=== PATIENT | male | born 1960 | race Caucasian/White ===

== ENCOUNTER 2018-02-07 11:56 | Inpatient (IN) | payer OTHER, SELFPAY ==
[2018-02-07 13:02] LABS: Hemoglobin 14.3 g/dL (14.0-18.0); Mean Corpuscular HGB CONC 34.9 g/dL (32.0-36.0); Mean Corpuscular Hemoglobin 33.5 pg (27.0-31.0); Mean Corpuscular Volume 96.2 fL (78.0-98.0); Mean Platelet Volume 8.3 fL (7.4-10.4); Platelet Count 226 thou/uL (130-400); RBC Distribution Width 14.8 % (11.5-14.5); Red Blood Cell (RBC) Count 4.28 mill/uL (4.70-6.10); White Blood Cell (WBC) Count 8.6 thou/uL (4.8-10.8)
[2018-02-07 13:07] LABS: Anion Gap 31 mmol/L (10-20); Calc. Creatinine Clearance 0 mL/min (70-130); Calcium 7.4 mg/dL (7.8-10.44); Carbon Dioxide 27 mmol/L (22-29); Chloride 91 mmol/L (98-107); Estimated GFR-MDRD 7; Glucose 171 mg/dL (70-105); Sodium 147 mmol/L (136-145)
[2018-02-07 13:09] LABS: ALT (SGPT) 201 U/L (8-55); AST (SGOT) 393 U/L (5-34); Albumin 2.8 g/dL (3.5-5.0); Alkaline Phosphatase 179 U/L (40-150); Bilirubin, Direct 1.1 mg/dL (0.1-0.3); Bilirubin, Total 1.8 mg/dL (0.2-1.2); Protein, Total 5.6 g/dL (6.0-8.3)
[2018-02-07 13:12] LABS: Troponin I 0.126 ng/mL (< 0.028)
[2018-02-07 13:15] LABS: Potassium 2.2 mmol/L (3.5-5.1)
[2018-02-07 13:18] LABS: Band 4 % (5-11); Lymphocytes 6 % (21-51); MDiff Complete? YES; Monocytes 20 % (0-10); Neutrophil 68 % (42-75); Nucleated RBC 1 % (0); PLT Morphology Comment Appears Adequate; RBC Morphology Normal
[2018-02-07 13:19] LABS: BUN (Urea Nitrogen) 126 mg/dL (8.4-25.7)
[2018-02-07] MEDS ORDERED: Potassium Chloride 20 MEQ TAB ONE (13:33)
[2018-02-07 13:34] LABS: CK (CPK) 8032 U/L (30-200)
[2018-02-07] MEDS ORDERED: Potassium Chloride 40 MEQ in Sodium Chloride 0.9% 250 ML 250 ML IVPB SCH (13:45)
[2018-02-07 15:39] LABS: Acetaminophen Less than 6.0 mcg/mL (10.0-30.0); Alcohol Less than 10 mg/dL (Less than 10); Salicylate Less than 8.0 mg/dL (15.0-30.0)
[2018-02-07 15:58] LABS: Lactic Acid 1.3 mmol/L (0.5-2.2)
[2018-02-07 16:12] LABS: Bilirubin Moderate (Negative); Blood, Urine Large (Negative); Clarity CLOUDY (Clear); Glucose, Urine (Dipstick) Negative (Negative); Leukocyte Negative (Negative); Nitrite Negative (Negative); Protein, Urine (Dipstick) 30 mg/dL (Neg-Trace); Specific Gravity, Urine 1.013 (1.002-1.036); pH, Urine 5.5 (5.0-9.0)
[2018-02-07 16:15] LABS: Bacteria/HPF None Seen HPF (None Seen); Squamous Epithelial 0-3 HPF (0-3)
[2018-02-07 16:18] LABS: Pathc Cast-AUWi Flag 9.74 (0-2.49); Yeast-AUWi Flag 159.3 (0-25.0)
[2018-02-07] MEDS ORDERED: Acetaminophen 500 MG TAB ONE (16:21)
[2018-02-07 16:22] LABS: Amphetamine Not Detected (NotDetected); Barbiturates Screen Not Detected (NotDetected); Benzodiazepine Screen Not Detected (NotDetected); Cocaine Metabolite Screen Not Detected (NotDetected); Medtox Reader # READER 4; Methadone Not Detected (NotDetected); Methamphetamine Not Detected (NotDetected); Opiate Screen Not Detected (NotDetected); Oxycodone Screen Not Detected (NotDetected); Phencyclidine (PCP) Not Detected (NotDetected); THC/Cannabinoid Screen Not Detected (NotDetected); Tricyclic Screen Not Detected (NotDetected)
[2018-02-07 16:23] LABS: Medtox Control Line Valid? VALID (VALID)
[2018-02-07 16:28] LABS: Crystals/HPF 1+ AMORPH URATES HPF (Negative)
[2018-02-07 16:29] LABS: Yeast-All Forms None Seen HPF (None Seen)
[2018-02-07] MEDS ORDERED: Magnesium Sulfate 2 GM in Sodium Chloride 0.9% 100 ML IVPB SCH (17:30)
--- NOTE | 2018-02-07 18:24 | HP ---
DATE OF ADMISSION: 02/07/2018 PRIMARY CARE PHYSICIAN: Noam Cross. TIME OF SERVICE: 1715 hours. CHIEF COMPLAINT: Alcohol intoxication. HISTORY OF PRESENT ILLNESS: Mr. Esquivel is a 57-year-old male who was sent to the emergency departm ent after his sister found him down on the floor after several hours. He had been drinking heavily a gain after getting down and she was concerned that he was intoxicated. EMS was activated when she found him. He has had some vomiting about 5 times over the last 2 days, h e had some loose stools. He was subsequently transported to the emergency department. On arrival here, he was found to be very disheveled looking. He admitted to being down for several h ours, but said he had not had a drink since yesterday. Denies any chest pain or shortness of breath. No nausea and vomiting present. No diarrhea or constipation. No cough, sputum production. No hem optysis or GI bleeding. Workup in the ER showed him to be in acute renal failure with a creatinine of 8.48 and a BUN of 126, potassium was low at 2.2. Magnesium was low at 1.5. Liver functions were elevated with AST of 393 a nd ALT of 201 and a fairly normal white blood cell count. Of concern though he did have a lymphocyte count of 6%, giving him an ANC around 500. Alcohol level was reportedly negative. Lactic acid was normal. CK was elevated in the 8000 range. We were subsequently called for admission for rhabdo, acute renal failure, and alcoholic hepatitis. The patient has no other further history to add. PAST MEDICAL HISTORY: 1. Hypertension. 2. Alcohol abuse. The patient stated that decreased level of alcohol intake over the last 2 years, but it started bingeing recently. PAST SURGICAL HISTORY: Appendectomy. MEDICATIONS: 1. Lisinopril 20 mg daily. He missed 2 doses last week and he did not take his dose today. 2. Atorvastatin 40 mg p.o. at bedtime. ALLERGIES: PENICILLIN. He does not know what his reaction, it was many, many years ago. FAMILY HISTORY: Negative for clotting or bleeding disorder, no immune dysfunction. SOCIAL HISTORY: Significant for alcohol, he drinks more than 10 drinks a day. He says 6-8 beers jazmín ly over the last several days, but none today. Denies any IV drug use and no tobacco. REVIEW OF SYSTEMS: All systems were reviewed and negative except stated as above. PHYSICAL EXAMINATION: VITAL SIGNS: Temperature 97.7, pulse 86, blood pressure 144/99, respiratory rate 20, and saturating 100% on room air. GENERAL: He is awake. He is alert. He is oriented x3. He is disheveled looking white male, appear s to be in no acute distress. HEENT: He is normocephalic, he has multiple bruises present over his face. Mucous membranes are mo ist. He has no visible lesions. No thrush. Teeth are in poor repair. NECK: Supple. There is no lymphadenopathy, JVD, or thyromegaly. He has normal carotid upstroke. I do not appreciate any bruits. LUNGS: Clear to auscultation bilaterally. No wheezes, no rales, no rhonchi. No prolonged expirator y phase. CARDIOVASCULAR: Normocardic and regular. Normal S1 and S2. I do not appreciate any S3, S4, no murm urs. ABDOMEN: Soft. It is nontender, nondistended. He has no hepatosplenomegaly. He has no rebound, ri gidity or guarding with normoactive bowel sounds present in all 4 quadrants. EXTREMITIES: No cyanosis, no clubbing with trace pedal edema. He has 2+ dorsalis pedis and posterio r tibial pulses. SKIN: Warm, moist, and well perfused. He has multiple excoriations and scabs present over his arms and legs. MUSCULOSKELETAL: Normal to inspection. Large joints appear normal. There is no evidence of inflamm ation or palpable effusions. NEUROLOGIC: Cranial nerves II-XII are grossly intact. He has no tremors. He has normal speech gopi gabrielle. He has 5/5 strength in all 4 extremities. LABORATORY DATA: Sodium 147, potassium 2.2, chloride 91, bicarbonate 27, BUN 126, creatinine 8.48, c alcium 9.4, and mag of 1.5. Alkaline phosphatase is elevated at 179 with AST of 393, ALT of 201, total bilirubin 1.8 with a direc t bilirubin of 1.1, total protein 5.6 and albumin 2.8. CBC showed a white count of 8.6, hemoglobin 1 4.3 with a hematocrit of 41.1, and platelet count is 226,000. He has a 63% granulocytes, 4% bands, 6 % lymphocytes, and 26% monocytes. ASSESSMENT AND PLAN: 1. Acute kidney injury: The patient reported that he did not have any history of kidney issues. He is extremely dehydrated plus has been on IRENE inhibitor. We will hold IRENE inhibitor obviously, we wi ll hydrate him aggressively. We will use banana bag and we will continue that tonight. 2. Rhabdomyolysis. CK of 8000 after being down in the floor. His MB and troponin I are slightly el evated as well. We will continue to hydrate. The bicarbonate was 27. I do not feel there is any to alkalinize his urine at this point. 3. Sbcjpyig-cd-itdiqk dehydration. Lactic acid level was remarkably normal. We will hydrate him ag gressively. 4. Hypokalemia with potassium 2.2, replaced orally and IV in the ER. 5. Hypomagnesemia, 2 grams have been ordered. 6. Elevated troponin. No history of chest pain. We will get serial cardiac biomarkers. 7. Subsequent hypertension. Antihypertensives are on hold. 8. Alcohol abuse. The patient was set up for alcohol withdrawal. He is a now 24 hours post, we carrol l initiate the ASE protocol for symptoms and for management. 9. Hyperlipidemia. The patient has been on atorvastatin. We will hold that at present.
[2018-02-07] MEDS ORDERED: Ondansetron ODT 4 MG TAB PO PRN (20:18)
[2018-02-07] MEDS ORDERED: Diazepam 5 MG TAB PO PRN (20:27)
[2018-02-07] MEDS ORDERED: Thiamine HCl 200 MG/2 ML VIAL IM SCH (20:30)
[2018-02-07] MEDS ORDERED: Diazepam 5 MG TAB PO SCH (20:30)
[2018-02-07] MEDS ORDERED: Lactated Ringer's 1,000 ML IV SCH (21:00)
[2018-02-07] MEDS: Famotidine 20 MG TAB PO SCH (21:02)
[2018-02-07] MEDS: Ondansetron HCl/PF 4 MG/2 ML Vial IVP PRN (21:02)
[2018-02-07 21:19] LABS: Troponin I 0.091 ng/mL (< 0.028)
[2018-02-07] MEDS: WATER IV SCH (21:21)
[2018-02-07] MEDS: SODIUM BICARBONATE IV SCH (21:21)
[2018-02-07] MEDS: DEXTROSE 5% IV SCH (21:21)
[2018-02-07] MEDS: POTASSIUM CHLORIDE IV SCH (21:21)
--- NOTE | 2018-02-08 03:09 | CON ---
DATE OF CONSULTATION: 02/07/2018 RENAL MEDICINE HISTORY OF PRESENT ILLNESS: Mr. Esquivel is a 57-year-old white male with known history of hypertens ion and admitted for syncopal episode. The patient has heavy alcohol intake. He was found by his si ster to be unresponsive. At the ER, he was found to be volume depleted and aggressive volume repleti on was done. During the initial workup, his CPK was noted to be significantly elevated to around 8,0 00 as well as an elevated BUN of 126 and creatinine of 8.48. He was also noted to be significantly h ypokalemic. On close questioning, this patient has history of heavy alcohol intake. He is also curr ently . REVIEW OF SYSTEMS: Positive for loss of consciousness. No chest pain, no shortness of breath, no na usea, no vomiting. Decreased appetite, decreased energy level. No headache, no diplopia, no hematoc hezia, no melena, no hematemesis, no gross hematuria. No abdominal pain. Appetite and energy level is fair. MEDICATIONS: Lisinopril 20 mg tab daily, pravastatin dose unknown, currently not taking, Ativan 0.5 mg tab p.r.n. PAST MEDICAL HISTORY: Longstanding history of hypertension. PAST SURGICAL HISTORY: 1. Status post appendectomy. 2. Status post right shoulder surgery? SOCIAL HISTORY: The patient lives in [place]. He is . Denies any children. Status post blo od transfusion. Denies any IV drug abuse. Currently no smoking. History of heavy alcohol intake. Active lifestyle. Education college graduate. ALLERGIES: PENICILLIN. TRAUMA: Status post right ankle fracture, status post right shoulder joint fracture. IMMUNIZATIONS: Not up to date. HOSPITALIZATIONS: Please see past medical history. FAMILY HISTORY: No family history of ESRD. PHYSICAL EXAMINATION: VITAL SIGNS: Blood pressure was noted to be at 134/93 with heart rate of 107, respiratory rate 20, t emperature 97.7. GENERAL: Noted to be awake, supine, comfortable, not in overt distress. SKIN: Decreased turgor. HEENT: He has pinkish conjunctivae, anicteric sclerae. NECK: No neck mass, no carotid bruits, no JVD. CHEST: No deformities. LUNGS: Clear breath sounds, no wheezing, no crackles. HEART: Normal sinus rhythm. No murmur, no gallops, no rubs. ABDOMEN: Globular, soft, nontender. No masses. EXTREMITIES: No edema. LABORATORY DATA: Laboratories of 02/07/2018; white count 8.6, hemoglobin 14.3, sodium 147, potassium 2.2, chloride 91, carbon dioxide 27, BUN 126, creatinine 8.48, calcium 7.4, AST 393, ALT 201, alkali ne phosphatase 179. [place] 8032, troponin I 0.126, albumin 2.8. Plasma alcohol less than 10. Urinalysis showed 0-3 coarse and finely granular casts, specific gravity 1.013, urine protein is 30. ASSESSMENT AND PLAN: Acute kidney injury, consider hemodynamically mediated renal dysfunction second jenny to volume depletion. The patient was given aggressive volume repletion at the ER. History of de creased p.o. intake. He was also taking lisinopril prior to admission. My concern is that this bert ent may have already developed overt acute tubular necrosis. It may be related to my group myoglobin uric ATN as suggested by an elevated CPK of 8,000. The other possibility this all could be just from volume depletion. For the moment, continue supportive care. There is no indication for any dialyti c intervention. My plan is to continue isotonic bicarbonate with this patient - D5 water 850 mL plus 3 ampule of sodi um bicarbonate plus 40 mEq of KCl to run at 125 mL per hour. We will reevaluate this patient's renal function tomorrow. Consider ordering a renal ultrasound in a.m. to determine kidney size and chroni city of this renal dysfunction. Thank you for the consult. We will continue to follow.
[2018-02-08] MEDS ORDERED: Diazepam 5 MG TAB PO PRN (04:00)
[2018-02-08 05:26] LABS: ALT (SGPT) 160 U/L (8-55); AST (SGOT) 282 U/L (5-34); Albumin 2.3 g/dL (3.5-5.0); Alkaline Phosphatase 153 U/L (40-150); Anion Gap 21 mmol/L (10-20); BUN (Urea Nitrogen) 119 mg/dL (8.4-25.7); Bilirubin, Total 1.4 mg/dL (0.2-1.2); Calc. Creatinine Clearance 20 mL/min (70-130); Calcium 6.8 mg/dL (7.8-10.44); Carbon Dioxide 24 mmol/L (22-29); Chloride 100 mmol/L (98-107); Estimated GFR-MDRD 13; Globulin 2.6 g/dL (2.4-3.5); Glucose 134 mg/dL (70-105); Magnesium 2.2 mg/dL (1.6-2.6); Protein, Total 4.9 g/dL (6.0-8.3); Sodium 142 mmol/L (136-145)
[2018-02-08 05:28] LABS: Troponin I 0.046 ng/mL (< 0.028)
[2018-02-08 05:29] LABS: CKMB 10.4 ng/mL (0-6.6); Critical Call CKMBM RESULT DECREASING; Potassium 2.8 mmol/L (3.5-5.1)
[2018-02-08 05:39] LABS: CK (CPK) 6415 U/L (30-200)
[2018-02-08] MEDS: DEXTROSE 5% IV SCH ×3 (05:44→23:44)
[2018-02-08] MEDS: POTASSIUM CHLORIDE IV SCH ×3 (05:44→23:44)
[2018-02-08] MEDS: WATER IV SCH ×3 (05:44→23:44)
[2018-02-08] MEDS: SODIUM BICARBONATE IV SCH ×3 (05:44→23:44)
[2018-02-08 05:55] LABS: Band 5 % (5-11); Hemoglobin 11.5 g/dL (14.0-18.0); Lymphocytes 8 % (21-51); MDiff Complete? YES; Mean Corpuscular HGB CONC 34.5 g/dL (32.0-36.0); Mean Corpuscular Hemoglobin 33.1 pg (27.0-31.0); Mean Corpuscular Volume 95.9 fL (78.0-98.0); Mean Platelet Volume 8.5 fL (7.4-10.4); Monocytes 19 % (0-10); Neutrophil 68 % (42-75); PLT Morphology Comment Appears Adequate; Platelet Count 187 thou/uL (130-400); RBC Distribution Width 14.8 % (11.5-14.5); Red Blood Cell (RBC) Count 3.46 mill/uL (4.70-6.10); White Blood Cell (WBC) Count 6.3 thou/uL (4.8-10.8)
[2018-02-08] MEDS: Magnesium Oxide 400 MG TAB PO SCH (09:43)
[2018-02-08] MEDS: Folic Acid 1 MG TAB PO SCH (09:43)
[2018-02-08] MEDS: Multivitamin W/ Minerals 1 TAB PO SCH (09:43)
--- NOTE | 2018-02-08 09:47 | PRG ---
DATE OF SERVICE: 02/08/2018 SUBJECTIVE: Mr. Esquivel is a 57-year-old white male who was admitted for a syncopal episode and was noted to be in acute kidney injury with elevated CPK of 8000. Review of the ____ suggested superimp osed acute tubular necrosis. My suspicion initially is that he may have a myoglobinuric ATN. This p atient has also heavy alcohol use. He was empirically given volume repletion overnight. His creatin ine is slightly improved and he is diuresing well. No new complaints today, no chest pain or shortne ss of breath. PHYSICAL EXAMINATION: VITAL SIGNS: Blood pressure 121/82, heart rate 88, respiratory rate 22, temperature 98.6, pulse ox 1 00%. GENERAL: Noted to be awake, alert, comfortable, not in distress SKIN: Adequate turgor. HEENT: He has pinkish conjunctivae, anicteric sclerae. NECK: No neck mass, no carotid bruits, no JVD. CHEST: No deformities. LUNGS: Clear breath sounds. No wheezing, no crackles. HEART: Normal sinus rhythm. No murmur, no gallops, no rubs. ABDOMEN: Globular, soft, nontender, no masses. EXTREMITIES: No edema, no deformities. MEDICATIONS: 02/08/2018 - Reviewed. LABORATORY DATA: 02/08/2018 - White count 6.2, hemoglobin 11.5, sodium 142, potassium 2.8, chloride 100, carbon dioxide 24, BUN is 119, creatinine is 4.58. AST is 282, ALT 160, CK 10.4. Troponin I 0. 046, albumin 2.3. Further review of his BUN on 02/07/2018 showed a BUN of 126 and a creatinine of 8. 48. ASSESSMENT AND PLAN: 1. Acute kidney injury - consider the possibility of myoglobinuric acute tubular necrosis. He seems to be responding with volume repletion. The plan is to continue IV hydration. There is no indicati on for any dialytic intervention. The patient is making adequate urine output. 2. Mild hypokalemia, p.r.n. potassium replacement. Currently, the patient received KCl 40 mEq The patient received potassium replacement yesterday. Our plan is to continue the IV hydration with the potassium. We will give him a 1 time dose of KCl - 40 mEq. Recheck base met and CBC in a.m.
[2018-02-08] MEDS ORDERED: Potassium Chloride 20 MEQ TAB PO SCH (10:00)
--- NOTE | 2018-02-08 10:04 | ULT ---
BILATERAL RENAL ULTRASOUND COMPLETE: Date: 02/08/18 HISTORY: 57-year-old male with history of renal failure. FINDINGS: The right kidney measures 11.2 x 6.2 x 5.6 cm. The left kidney measures 11.0 x 6.5 x 5.7 cm. No renal hydronephrosis or perinephric process. There is a Meier catheter in place within the bladder with a somewhat thick wall, although it is nearly empty. IMPRESSION: No renal hydronephrosis or perinephric process. Meier catheter within the bladder, which is nearly em pty with a somewhat thickened wall, probably related to underdistention. POS: JOSE DE JESUS
--- NOTE | 2018-02-08 11:16 | PDOC.PN ---
- Subjective Encounter Start Date: 02/08/18 Encounter Start Time: 11:14 Subjective: nsg notes rev, zhou ovn, pt overall feels better -: states his father and he resumed drinking after being sober then inc -: his etoh intake when his mother wasn't feeling well - Objective Resuscitation Status: Resuscitation Status FULL:Full Resuscitation Vital Signs & Weight: Vital Signs (12 hours) Temp Pulse Resp BP BP Pulse Ox 02/08/18 08:00 98.6 F 88 22 H 121/82 100 02/08/18 04:00 98.3 F 82 15 126/82 99 02/08/18 00:00 97.3 F L 84 17 101/70 101/70 100 Weight Weight 173 lb 4 oz I&O: 02/07/18 02/08/18 02/09/18 06:59 06:59 06:59 Intake Total 2310 Output Total 1475 Balance 835 Result Diagrams: 02/08/18 04:26 02/08/18 04:26 Phys Exam - Physical Examination Constitutional: NAD seated in hospital bed HEENT: moist MMs, sclera anicteric Respiratory: no wheezing, no rales, no rhonchi, clear to auscultation bilateral Cardiovascular: RRR, no significant murmur, no rub Gastrointestinal: soft, non-tender, no distention, positive bowel sounds Musculoskeletal: no edema, pulses present Neurological: moves all 4 limbs Psychiatric: A&O x 3 Deviation from normal: slightly anxious Dx/Plan - Plan cont current plan of care * IRA * improved with hydration * apprec nephro c/s * continue to hydrate, check BMP in AM, monitor I/O rhabdomyolysis improved hydration as above etoh use contemplative of cessation - previously was going to AA, would like to resume has had w/d before but w/o sz continue ASE protocol hypokalemia repletion prn maintain on telemetry repeat BMP diet: as marielena activity: as marielena dvt ppx d/w pt and bedside nsg Review of Systems - Medications/Allergies Allergies/Adverse Reactions: Allergies Allergy/AdvReac Type Severity Reaction Status Date / Time Penicillins Allergy Verified 02/08/18 01:46 Medications: Current Medications Diazepam (Valium) 5 mg PO Q4H PRN PRN Reason: FOR ASE 10 OR GREATER Famotidine (Pepcid) 20 mg PO QPM [facility] Last Admin: 02/07/18 21:02 Dose: 20 mg Folic Acid (Folvite) 1 mg PO DAILY [facility] Last Admin: 02/08/18 09:43 Dose: 1 mg Sodium Bicarbonate 150 meq/Potassium Chloride 40 meq/Dextrose/Water 1,020 mls @ 125 mls/hr IV .Q8H10M [facility] Last Admin: 02/08/18 05:44 Dose: 1,020 mls Iron/Minerals/Multivitamins (Theragran M) 1 tab PO DAILY [facility] Last Admin: 02/08/18 09:43 Dose: 1 tab Magnesium Oxide (Magnesium Oxide) 400 mg PO DAILY [facility] Last Admin: 02/08/18 09:43 Dose: 400 mg Miscellaneous (Ase Protocol) 1 each FS ONE [facility] Stop: 02/17/18 20:19 Ondansetron HCl (Zofran Odt) 4 mg PO Q6H PRN PRN Reason: Nausea/Vomiting Ondansetron HCl (Zofran) 4 mg IVP Q6H PRN PRN Reason: Nausea/Vomiting Last Admin: 02/07/18 21:02 Dose: 4 mg Potassium Chloride (K-Dur) 40 meq PO 1000 [facility] Stop: 02/08/18 12:00 Sodium Chloride (Flush - Normal Saline) 10 ml IVF Q12HR [facility] Last Admin: 02/08/18 09:43 Dose: 10 ml Sodium Chloride (Flush - Normal Saline) 10 ml IVF PRN PRN PRN Reason: Saline Flush Thiamine HCl (Thiamine) 100 mg PO DAILY [facility] Last Admin: 02/08/18 09:43 Dose: 100 mg
[2018-02-08] MEDS: Acetaminophen 325 MG TAB PO PRN ×2 (12:42→17:26)
[2018-02-08] MEDS: Famotidine 20 MG TAB PO SCH (20:40)
[2018-02-09] MEDS: DEXTROSE 5% IV SCH ×2 (01:10→06:24)
[2018-02-09] MEDS: WATER IV SCH ×2 (01:10→06:24)
[2018-02-09] MEDS: POTASSIUM CHLORIDE IV SCH ×2 (01:10→06:24)
[2018-02-09] MEDS: SODIUM BICARBONATE IV SCH ×2 (01:10→06:24)
--- NOTE | 2018-02-09 01:42 | CON ---
DATE OF SERVICE: 02/08/2018 SUBJECTIVE: Mr. Esquivel is a 57-year-old male with a history of heavy alcohol use. He apparently has been binge drinking. He says he only drank 2 beers a day prior to admission. Apparently, he had syncope and was found to be unresponsive. He does not recall coming to the hospital. He is not a very helpful historian. PAST MEDICAL HISTORY: Remarkable for hypertension, appendectomy and shoulder surgery. SOCIAL HISTORY: Non-smoker, heavy drinker. He does not use drugs. ALLERGIES: He reports an allergy to PENICILLIN. FAMILY HISTORY: Negative for lung disease in early age. REVIEW OF SYSTEMS: Ten point system review completed, otherwise negative. He says he feels fine, although he does not look well. OBJECTIVE: GENERAL: 57-year-old male with a history of heavy alcohol use. VITAL SIGNS: He is afebrile, heart rate 75, respiratory rate 16, oximetry is 94 % on room air. Blood pressure 151/95. HEENT: Pupils are equal. Sclerae anicteric. NECK: Supple. No lymphadenopathy. LUNGS: Clear. HEART: Regular rhythm, no S3, no murmur. ABDOMEN: Soft and nontender. EXTREMITIES: Without clubbing, cyanosis, or edema. LABORATORY DATA: White count 6.3, hemoglobin 11.5, was 14.3 yesterday. Sodium 187. Intake and output is positive 835, it is probably does not take into account volume resuscitation in the emergency room: Sodium 142, potassium 2.8, chloride 100, bicarbonate 24, BUN 119, creatinine 4.58, creatinine was 8.48 yesterday. CPK was 8032. Liver enzymes were elevated. Bilirubin is 1.8. IMPRESSION: 1. Intravascular volume depletion, severe. 2. Encephalopathy on presentation, most likely secondary to intravascular volume depletion combined with renal failure plus or minus alcoholism. 3. Hyperosmolar state secondary to vascular volume depletion. 4. Acute on chronic kidney disease appears to be improving. 5. Elevated liver enzymes secondary to alcoholism. 6. Rhabdomyolysis secondary to being down for quite some time in one position. PLAN: Continue hydration. Lab work. He wants to go home. He does not appear well at this time and should continue with volume resuscitation and close observation. He cannot move out of intermediate care unit in my opinion. This is a 50 minute consult with greater than 50% of time spent on unit with coordination of care. MTDD
[2018-02-09 06:34] LABS: BUN (Urea Nitrogen) 61 mg/dL (8.4-25.7); Calc. Creatinine Clearance 64 mL/min (70-130); Calcium 7.5 mg/dL (7.8-10.44); Carbon Dioxide Greater than 37 mmol/L (22-29); Chloride 97 mmol/L (98-107); Estimated GFR-MDRD 51; Glucose 108 mg/dL (70-105); Potassium 2.5 mmol/L (3.5-5.1); Sodium 147 mmol/L (136-145)
[2018-02-09 06:37] LABS: Band 15 % (5-11); Eosinophils 1 % (0-10); Hemoglobin 11.6 g/dL (14.0-18.0); Lymphocytes 26 % (21-51); MDiff Complete? YES; Mean Corpuscular HGB CONC 34.3 g/dL (32.0-36.0); Mean Corpuscular Hemoglobin 33.3 pg (27.0-31.0); Mean Corpuscular Volume 97.2 fL (78.0-98.0); Mean Platelet Volume 8.3 fL (7.4-10.4); Metamyelocyte 1 % (0-0); Monocytes 14 % (0-10); Neutrophil 43 % (42-75); PLT Morphology Comment Appears Adequate; Platelet Count 222 thou/uL (130-400); RBC Distribution Width 14.7 % (11.5-14.5); Red Blood Cell (RBC) Count 3.48 mill/uL (4.70-6.10); White Blood Cell (WBC) Count 5.5 thou/uL (4.8-10.8)
[2018-02-09] MEDS ORDERED: Potassium Chloride 20 MEQ TAB PO SCH (07:00)
[2018-02-09] MEDS: Magnesium Oxide 400 MG TAB PO SCH (08:21)
[2018-02-09] MEDS: Folic Acid 1 MG TAB PO SCH (08:21)
[2018-02-09] MEDS: Multivitamin W/ Minerals 1 TAB PO SCH (08:21)
[2018-02-09] MEDS: traMADol HCl 50 MG TAB PO PRN (09:36)
[2018-02-09] MEDS: Sodium Chloride 0.9% 1,000 ML IV SCH ×2 (09:38→18:26)
--- NOTE | 2018-02-09 09:54 | PRG ---
DATE OF SERVICE: 02/09/2018 SERVICE: Renal Medicine. SUBJECTIVE: Mr. Esquivel is a 57-year-old white male, who was seen for an acute kidney injury. The feeling was that this could have been secondary to a myoglobinuric ATN due to findings of mild rhabdo myolysis as well as pigmented granular casts in the urine. Empiric volume repletion was done also at the same time since the possibility of a prerenal component was considered. This morning, he is fee ling a little better. He denies any complaints of chest pain or shortness of breath. PHYSICAL EXAMINATION: VITAL SIGNS: Blood pressure is 157/92, heart rate 60, respiratory rate 14, temperature 98.4, pulse o x 93%. GENERAL EXAM: Awake, alert, supine, comfortable, not in distress. SKIN: Adequate turgor. HEENT: He has pinkish conjunctivae, anicteric sclerae. NECK: No neck mass, no carotid bruits, no JVD. CHEST: No deformities. LUNGS: Clear breath sounds. HEART: Normal sinus rhythm. No murmur, no gallops, no rubs. ABDOMEN: Globular, soft, nontender, no masses. EXTREMITIES: No edema. Medications of 02/09/2018 were reviewed. LABORATORY DATA: Laboratories of 02/09/2018, sodium 147, potassium 2.5, chloride 97, carbon dioxide greater than 27, BUN 61, creatinine 1.44, calcium is 7.5. White count 5.5 and hemoglobin 11.6. ASSESSMENT AND PLAN: 1. Acute kidney injury - secondary to presumed myoglobinuric acute tubular necrosis. However, renal function is much improved suggesting that he most likely has a prerenal component for the renal dysf unction. Our plan is to continue current management. Due to the increased bicarbonate, we will bhatt ge IV fluid to normal saline and run at 100 mL per hour. 2. Mild hypokalemia, p.r.n. potassium replacement. There is no indication for any dialytic intervention. Continue supportive care with this patient.
[2018-02-09] MEDS: Ondansetron HCl/PF 4 MG/2 ML Vial IVP PRN (11:28)
--- NOTE | 2018-02-09 14:22 | PDOC.PN ---
- Subjective Encounter Start Date: 02/09/18 Encounter Start Time: 07:40 Pt seen for followup re: rhabdomyolysis. Denies chest pain or shortness of breath. - Objective Resuscitation Status: Resuscitation Status FULL:Full Resuscitation MAR Reviewed: Yes Vital Signs & Weight: Vital Signs (12 hours) Temp Pulse Resp BP Pulse Ox 02/09/18 11:31 98.9 F 57 L 16 163/95 H 94 L 02/09/18 08:11 98.4 F 60 14 157/92 H 93 L 02/09/18 04:00 98.2 F 62 16 146/87 H 92 L Weight Admit Weight 172 lb 7 oz Weight 173 lb 4 oz I&O: 02/08/18 02/09/18 02/10/18 06:59 06:59 06:59 Intake Total 2310 3080 Output Total 1475 4600 Balance 835 -1520 Result Diagrams: 02/10/18 08:47 02/10/18 08:47 EKG Reviewed by me: Yes (Tele: NSR) Phys Exam - Physical Examination Constitutional: NAD HEENT: moist MMs, oral pharynx no lesions, 2+ tonsils scleral icterus Neck: no nodes, no JVD, supple, full ROM Respiratory: no wheezing, no rales, no rhonchi, clear to auscultation bilateral Cardiovascular: RRR, no rub S1,S2 Gastrointestinal: soft, non-tender, no distention, positive bowel sounds Neurological: moves all 4 limbs Psychiatric: normal affect Deviation from normal: Oriented to person, place, not to time Deviation from normal: Bruises over lower back Dx/Plan (1) Rhabdomyolysis Code(s): M62.82 - RHABDOMYOLYSIS Status: Acute Comment: Improving, continue IV fluids (2) IRA (acute kidney injury) Code(s): N17.9 - ACUTE KIDNEY FAILURE, UNSPECIFIED Status: Acute Comment: Improving, likely due to rhabdomyolysis (3) Hypokalemia Code(s): E87.6 - HYPOKALEMIA Status: Acute Comment: replace potassium (4) Abnormal LFTs Code(s): R94.5 - ABNORMAL RESULTS OF LIVER FUNCTION STUDIES Status: Acute Comment: Improving, likely due to alcohol abuse (5) Hypoalbuminemia Code(s): E88.09 - OTH DISORDERS OF PLASMA-PROTEIN METABOLISM, NEC Status: Chronic Comment: likely due to liver disease (6) HTN (hypertension) Code(s): I10 - ESSENTIAL (PRIMARY) HYPERTENSION Status: Chronic Comment: Monitor vital signs, titrate antihypertensives as needed (7) Alcohol abuse Code(s): F10.10 - ALCOHOL ABUSE, UNCOMPLICATED Status: Chronic Comment: on [facility] protocol - Plan * . Review of Systems - Review of Systems Constitutional: negative: fever, chills, sweats, weakness, malaise Respiratory: negative: Cough, Shortness of Breath, SOB with Excertion, Pleuritic Pain, Wheezing Cardiovascular: negative: chest pain, palpitations, orthopnea, paroxysmal nocturnal dyspnea, edema, light headedness Gastrointestinal: negative: Nausea, Vomiting, Abdominal Pain, Diarrhea, Constipation, Melena, Hematochezia Genitourinary: negative: Dysuria, Frequency, Incontinence, Hematuria, Retention Skin: negative: Rash, Lesions, [place], Bruising Neurological: Other (headache) - Medications/Allergies Allergies/Adverse Reactions: Allergies Allergy/AdvReac Type Severity Reaction Status Date / Time Penicillins Allergy Verified 02/08/18 01:46 Medications: Current Medications Acetaminophen (Tylenol) 650 mg PO Q4H PRN PRN Reason: Headache/Fever or Pain Last Admin: 02/08/18 17:26 Dose: 650 mg Diazepam (Valium) 5 mg PO Q4H PRN PRN Reason: FOR ASE 10 OR GREATER Famotidine (Pepcid) 20 mg PO QPM [facility] Last Admin: 02/08/18 20:40 Dose: 20 mg Folic Acid (Folvite) 1 mg PO DAILY [facility] Last Admin: 02/09/18 08:21 Dose: 1 mg Sodium Chloride (Normal Saline 0.9%) 1,000 mls @ 100 mls/hr IV .Q10H [facility] Last Admin: 02/09/18 09:38 Dose: 1,000 mls Iron/Minerals/Multivitamins (Theragran M) 1 tab PO DAILY [facility] Last Admin: 02/09/18 08:21 Dose: 1 tab Magnesium Oxide (Magnesium Oxide) 400 mg PO DAILY [facility] Last Admin: 02/09/18 08:21 Dose: 400 mg Miscellaneous (Ase Protocol) 1 each FS ONE [facility] Stop: 02/17/18 20:19 Ondansetron HCl (Zofran Odt) 4 mg PO Q6H PRN PRN Reason: Nausea/Vomiting Ondansetron HCl (Zofran) 4 mg IVP Q6H PRN PRN Reason: Nausea/Vomiting Last Admin: 02/09/18 11:28 Dose: 4 mg Sodium Chloride (Flush - Normal Saline) 10 ml IVF Q12HR [facility] Last Admin: 02/09/18 08:24 Dose: Not Given Sodium Chloride (Flush - Normal Saline) 10 ml IVF PRN PRN PRN Reason: Saline Flush Thiamine HCl (Thiamine) 100 mg PO DAILY [facility] Last Admin: 02/09/18 08:21 Dose: 100 mg Tramadol HCl (Ultram) 50 mg PO Q8H PRN PRN Reason: Pain Last Admin: 02/09/18 09:36 Dose: 50 mg
--- NOTE | 2018-02-09 15:19 | PRG ---
DATE OF SERVICE: 02/09/2018 SUBJECTIVE: Karthik Esquivel looks 100% better today than he looked yesterday. OBJECTIVE: VITAL SIGNS: He is afebrile, heart rates in the 50s to low 60s, respiratory rates in the teens. Oxi metry is 94% on room air, blood pressure 163/95. LUNGS: Clear. HEART: Regular rhythm. ABDOMEN: Soft and nontender. EXTREMITIES: Without asymmetry. LABORATORY DATA: White count is 5.5, hemoglobin 11.6, platelets 222. Sodium 147, potassium 2.5, chloride 97, bicarbonate greater than 37, BUN 61, creatinine 1.44. IMPRESSION: 1. Severe intravascular volume depletion, improving. 2. ?metabolic alkalosis. I wonder if this is a lab aberrancy. He actually looks much better than h e looked yesterday. 3. Acute on chronic kidney disease. He has had a dramatic improvement in his renal function with hy dration. 4. Gait instability and deconditioning with malnutrition. Discussed with family and he says he is a greeable to care home placement once he has recovered from this. I will continue with current care.
[2018-02-09] MEDS: Acetaminophen 325 MG TAB PO PRN (19:52)
[2018-02-09] MEDS: Famotidine 20 MG TAB PO SCH (19:52)
[2018-02-09 20:23] LABS: Bilirubin Negative (Negative); Blood, Urine Moderate (Negative); Clarity CLEAR (Clear); Glucose, Urine (Dipstick) Negative (Negative); Leukocyte Negative (Negative); Nitrite Negative (Negative); Protein, Urine (Dipstick) Trace mg/dL (Neg-Trace); Specific Gravity, Urine 1.008 (1.002-1.036)
[2018-02-09 20:24] LABS: Bacteria/HPF None Seen HPF (None Seen); Hyaline Casts/LPF 0-3 HYALINE CAST LPF (0-3 Hyaline); Pathc Cast-AUWi Flag 0.14 (0-2.49); Squamous Epithelial None Seen HPF (0-3); WBC/HPF 0-3 HPF (0-3)
--- NOTE | 2018-02-09 21:49 | CT ---
CT ABDOMEN AND PELVIS WITHOUT CONTRAST: 02/09/18 HISTORY: Bruising to the abdomen and lower back, fall. Findings absent of oral and IV contrast reduces the sensitivity of the exam particularly for evaluati on of solid organs and bowel. There are small bilateral pleural effusions and mild adjacent infiltrate/atelectatic changes. No free air is seen in the abdomen or pelvis. There is a small amount of free fluid in the abdomen and pelvi s including the anterior peritoneal space and bilateral pericolic gutters. There is diffuse fatty inf iltration of the liver. No calcified gallstones are seen. A punctate calculus is noted in the left ki dney. No calculi is seen in the right kidney, either ureter, or the urinary bladder. No hydroureteron ephrosis is noted on either side. There is air in the urinary bladder and a Meier catheter. No fracture or subluxation is seen in the lumbar spine. Degenerative changes are present in the spine . There are vascular calcifications without evidence of aneurysmal dilatation of the abdominal aorta. P ostop changes are seen in the region of the cecum. IMPRESSION: 1. Small bilateral pleural effusions. 2. Fatty liver. 3. Tiny nonobstructing left renal calculus. 4. Small amount of free fluid in the abdomen or pelvis. Possibility of pancreatitis should be co nsidered. POS: [facility]
--- NOTE | 2018-02-09 21:50 | RAD ---
PORTABLE CHEST ONE VIEW: 02/09/18 at 9:26 p.m. HISTORY: Fever. FINDINGS/IMPRESSION: The heart size is borderline. The lungs are well expanded without lobar consolidation, pneumothoraces , chiquis pulmonary edema or large effusions. POS: [facility]
--- NOTE | 2018-02-09 21:52 | RAD ---
CERVICAL SPINE TWO VIEWS: 02/09/18 HISTORY: Fall, neck pain. FINDINGS/IMPRESSION: Multilevel degenerative changes are present. The C7 vertebral body and cervicothoracic junction are n ot satisfactory visualized on the lateral view. Further evaluation with CT scan is recommended. POS: [facility]
--- NOTE | 2018-02-09 21:55 | RAD ---
LUMBAR SPINE THREE VIEWS: 02/09/18 HISTORY: Fall. Low back pain. FINDINGS/IMPRESSION: No acute fracture, subluxation or bony destruction is identified. POS: [facility]
[2018-02-09] MEDS: Vancomycin HCl 1 GM in Premix Bag 1 BAG IVPB SCH (22:54)
[2018-02-10] MEDS: Acetaminophen 325 MG TAB PO PRN (00:27)
[2018-02-10] MEDS: Cefepime 2 GM in Sodium Chloride 0.9% 100 ML IVPB SCH ×2 (02:57→14:52)
[2018-02-10] MEDS: Sodium Chloride 0.9% 1,000 ML IV SCH ×3 (07:14→15:38)
[2018-02-10] MEDS: Multivitamin W/ Minerals 1 TAB PO SCH (08:36)
[2018-02-10] MEDS: Folic Acid 1 MG TAB PO SCH (08:36)
[2018-02-10] MEDS: Magnesium Oxide 400 MG TAB PO SCH (08:36)
[2018-02-10] MEDS: Potassium Chloride 20 MEQ TAB PO SCH ×5 (08:37→23:46)
[2018-02-10] MEDS: Famotidine 20 MG TAB PO SCH ×2 (08:37→20:46)
[2018-02-10] MEDS: traMADol HCl 50 MG TAB PO PRN ×2 (08:41→15:28)
[2018-02-10] MEDS ORDERED: Magnesium Sulfate 2 GM, Admixture Fee 1 EACH in Sodium Chloride 0.9% 100 ML IVPB SCH (09:00)
[2018-02-10] MEDS ORDERED: Potassium Chloride 40 MEQ in Premix Bag 1 BAG IVPB SCH (09:00)
[2018-02-10] MEDS ORDERED: Magnesium 2 GM/NS 0.9% 100 ML 2 GM in Premix Bag 1 BAG IVPB SCH (09:00)
[2018-02-10 09:07] LABS: Hemoglobin 10.9 g/dL (14.0-18.0); Mean Corpuscular HGB CONC 33.7 g/dL (32.0-36.0); Mean Corpuscular Hemoglobin 33.2 pg (27.0-31.0); Mean Corpuscular Volume 98.4 fL (78.0-98.0); Platelet Count 304 thou/uL (130-400); RBC Distribution Width 14.6 % (11.5-14.5); White Blood Cell (WBC) Count 7.4 thou/uL (4.8-10.8)
[2018-02-10 09:30] LABS: ALT (SGPT) 118 U/L (8-55); AST (SGOT) 152 U/L (5-34); Albumin 2.4 g/dL (3.5-5.0); Alkaline Phosphatase 111 U/L (40-150); Anion Gap 16 mmol/L (10-20); BUN (Urea Nitrogen) 21 mg/dL (8.4-25.7); Bilirubin, Total 1.5 mg/dL (0.2-1.2); Calc. Creatinine Clearance 123 mL/min (70-130); Calcium 7.4 mg/dL (7.8-10.44); Carbon Dioxide 33 mmol/L (22-29); Chloride 97 mmol/L (98-107); Estimated GFR-MDRD Greater than 90; Globulin 2.5 g/dL (2.4-3.5); Glucose 93 mg/dL (70-105); Protein, Total 4.9 g/dL (6.0-8.3); Sodium 143 mmol/L (136-145)
--- NOTE | 2018-02-10 09:32 | PRG ---
DATE OF SERVICE: 02/10/2018 RENAL MEDICINE SUBJECTIVE: Mr. Esquivel is a 57-year-old white male who was seen for his acute kidney injury. He w as empirically given volume repletion with improvement of the renal function. His urine sediment was quite active showing some degree of granular casts suggestive of acute tubular necrosis. He may hav e simply a patchy ATN due to the improvement of the renal function with volume repletion. He is feel ing better. He denies any chest pain or shortness of breath. However, he does complain of some head ache this morning. PHYSICAL EXAMINATION: VITAL SIGNS: Blood pressure 157/93, heart rate 62, respiratory rate 16, temperature 99.7, pulse ox 9 4%. GENERAL: Noted to be awake, alert, comfortable, not in distress, supine. SKIN: Adequate turgor. HEENT: He has pinkish conjunctivae, anicteric sclerae. NECK: No neck mass, no carotid bruits, no JVD. CHEST: No deformities. LUNGS: Clear breath sounds. No wheezing, no crackles. HEART: Normal sinus rhythm. No murmurs, no gallops, no rubs. ABDOMEN: Globular, soft, nontender, no masses. EXTREMITIES: No edema. MEDICATIONS: Medications of 02/10/2018 reviewed. LABORATORY DATA: Laboratories of 02/10/2018, base met pending. On 02/09/2018, white count 5.5, hemoglobin 11.6. Sodium was 147, potassium 2.5, chloride 97, carbon dioxide greater than 37, BUN 61, creatinine 1.44. ASSESSMENT AND PLAN: Acute kidney injury - consider hemodynamically mediated renal dysfunction. Imp roving renal function with volume repletion. We are awaiting repeat creatinine with this patient tuyet fitzpatrick. Continue current IV fluid. Please note IV fluid has been changed from isotonic bicarbonate to n ormal saline due to the improving renal function as well as rise in bicarbonate. Overall, prognosis remains guarded. Continue supportive care. No indication for any dialytic intervention. Recheck ba met in a.m.
[2018-02-10 09:35] LABS: Magnesium 0.8 mg/dL (1.6-2.6); Potassium 2.6 mmol/L (3.5-5.1)
[2018-02-10 09:44] LABS: Band 13 % (5-11); Eosinophils 1 % (0-10); Lymphocytes 16 % (21-51); MDiff Complete? YES; Monocytes 11 % (0-10); Neutrophil 59 % (42-75); RBC Morphology Normal
[2018-02-10] MEDS: Potassium Chloride 20 MEQ in Premix Bag 1 BAG IVPB SCH ×2 (09:59→11:00)
[2018-02-10] MEDS: Vancomycin HCl 1 GM in Premix Bag 1 BAG IVPB SCH ×2 (11:13→23:46)
--- NOTE | 2018-02-10 14:07 | PDOC.PN ---
- Subjective Encounter Start Date: 02/10/18 Encounter Start Time: 08:00 Pt seen for followup re: rhabdomyolysis. Denies any complaints. - Objective Resuscitation Status: Resuscitation Status FULL:Full Resuscitation MAR Reviewed: Yes Vital Signs & Weight: Vital Signs (12 hours) Temp Pulse Resp BP BP Pulse Ox 02/10/18 07:05 99.7 F H 62 16 157/93 H 94 L 02/10/18 04:00 98.6 F 77 12 156/94 H 156/94 H Weight Admit Weight 172 lb 7 oz Weight 172 lb 6.4 oz I&O: 02/09/18 02/10/18 02/11/18 06:59 06:59 06:59 Intake Total 3080 2918 Output Total 4600 4910 Balance -1519 Result Diagrams: 02/10/18 08:47 02/10/18 08:47 EKG Reviewed by me: Yes (Tele: V-tach, ? torsades) Phys Exam - Physical Examination Constitutional: NAD HEENT: moist MMs, sclera anicteric, oral pharynx no lesions, 2+ tonsils scleral icterus Neck: no nodes, no JVD, supple, full ROM Respiratory: no wheezing, no rales, no rhonchi, clear to auscultation bilateral Cardiovascular: no rub, irregular S1, S2 Gastrointestinal: soft, non-tender, no distention, positive bowel sounds Neurological: moves all 4 limbs Psychiatric: normal affect Deviation from normal: Oriented to person and place, not to time Dx/Plan (1) Rhabdomyolysis Code(s): M62.82 - RHABDOMYOLYSIS Status: Acute Comment: Improving, continue IV fluids (2) Hypokalemia Code(s): E87.6 - HYPOKALEMIA Status: Acute Comment: replace potassium (3) Abnormal LFTs Code(s): R94.5 - ABNORMAL RESULTS OF LIVER FUNCTION STUDIES Status: Acute Comment: Improving, likely due to alcohol abuse (4) HTN (hypertension) Code(s): I10 - ESSENTIAL (PRIMARY) HYPERTENSION Status: Chronic Comment: continue to monitor vital signs, titrate antihypertensives as needed (5) Sepsis Code(s): A41.9 - SEPSIS, UNSPECIFIED ORGANISM Status: Suspected Comment: pt spiked fever yesterday. Continue IV cefepime and vancomycin. Await cultures. No evidence of pneumonia or UTI. (6) Alcohol abuse Code(s): F10.10 - ALCOHOL ABUSE, UNCOMPLICATED Status: Chronic Comment: on ASE protocol (7) IRA (acute kidney injury) Code(s): N17.9 - ACUTE KIDNEY FAILURE, UNSPECIFIED Status: Resolved - Plan * . Review of Systems - Review of Systems Constitutional: negative: fever, chills, sweats, weakness, malaise Respiratory: negative: Cough, Shortness of Breath, SOB with Excertion, Pleuritic Pain, Wheezing Cardiovascular: negative: chest pain, palpitations, orthopnea, paroxysmal nocturnal dyspnea, edema, light headedness Gastrointestinal: negative: Nausea, Vomiting, Abdominal Pain, Diarrhea, Constipation, Melena, Hematochezia Genitourinary: negative: Dysuria, Frequency, Incontinence, Hematuria, Retention Musculoskeletal: negative: Neck Pain, Shoulder Pain, Arm Pain, Back Pain, Hand Pain, Leg Pain, Foot Pain - Medications/Allergies Allergies/Adverse Reactions: Allergies Allergy/AdvReac Type Severity Reaction Status Date / Time Penicillins Allergy Verified 02/08/18 01:46 Medications: Current Medications Acetaminophen (Tylenol) 650 mg PO Q4H PRN PRN Reason: Headache/Fever or Pain Last Admin: 02/10/18 00:27 Dose: 650 mg Diazepam (Valium) 5 mg PO Q4H PRN PRN Reason: FOR ASE 10 OR GREATER Last Admin: 02/10/18 00:27 Dose: 5 mg Famotidine (Pepcid) 20 mg PO BID [facility] Last Admin: 02/10/18 08:37 Dose: 20 mg Folic Acid (Folvite) 1 mg PO DAILY [facility] Last Admin: 02/10/18 08:36 Dose: 1 mg Sodium Chloride (Normal Saline 0.9%) 1,000 mls @ 100 mls/hr IV .Q10H [facility] Last Admin: 02/10/18 07:14 Dose: 1,000 mls Vancomycin HCl 1 gm/ Device 200 mls @ 200 mls/hr IVPB 1100,2300 [facility] Last Admin: 02/10/18 11:13 Dose: 200 mls Cefepime HCl 2 gm/ Sodium (Chloride) 100 mls @ 200 mls/hr IVPB 0200,1400 [facility] Last Admin: 02/10/18 02:57 Dose: 100 mls Iron/Minerals/Multivitamins (Theragran M) 1 tab PO DAILY [facility] Last Admin: 02/10/18 08:36 Dose: 1 tab Magnesium Oxide (Magnesium Oxide) 400 mg PO DAILY [facility] Last Admin: 02/10/18 08:36 Dose: 400 mg Miscellaneous (Ase Protocol) 1 each FS ONE [facility] Stop: 02/17/18 20:19 Miscellaneous Medication (Pharmacy To Dose) 0 each IVPB PRN PRN PRN Reason: [facility] Pharmacy to Dose Ondansetron HCl (Zofran Odt) 4 mg PO Q6H PRN PRN Reason: Nausea/Vomiting Ondansetron HCl (Zofran) 4 mg IVP Q6H PRN PRN Reason: Nausea/Vomiting Last Admin: 02/09/18 11:28 Dose: 4 mg Potassium Chloride (K-Dur) 40 meq PO Q4H [facility] Stop: 02/10/18 16:01 Last Admin: 02/10/18 11:14 Dose: Not Given Sodium Chloride (Flush - Normal Saline) 10 ml IVF Q12HR [facility] Last Admin: 02/10/18 08:37 Dose: 10 ml Sodium Chloride (Flush - Normal Saline) 10 ml IVF PRN PRN PRN Reason: Saline Flush Thiamine HCl (Thiamine) 100 mg PO DAILY [facility] Last Admin: 02/10/18 08:36 Dose: 100 mg Tramadol HCl (Ultram) 50 mg PO Q8H PRN PRN Reason: Pain Last Admin: 02/10/18 08:41 Dose: 50 mg
[2018-02-10] MEDS ORDERED: Magnesium Sulfate 2 GM in Sodium Chloride 0.9% 100 ML IVPB SCH (16:00)
[2018-02-10] MEDS: hydrALAZINE 20 MG/ML VIAL SLOW IVP PRN ×2 (16:01→23:50)
[2018-02-10 19:50] LABS: Magnesium 1.3 mg/dL (1.6-2.6)
[2018-02-10 19:53] LABS: Potassium 2.8 mmol/L (3.5-5.1)
[2018-02-10 22:19] LABS: Vancomycin, Trough 8.8 ug/mL
--- NOTE | 2018-02-11 | PRG ---
DATE OF SERVICE: 02/10/2018 SUBJECTIVE: He is still very weak, has a setup much. He has no complaints today. OBJECTIVE: VITAL SIGNS: He is afebrile, heart rates 63, blood pressure 143/65, respiratory rate is 20. Culture s remain negative. LUNGS: Clear. HEART: Regular rhythm. ABDOMEN: Soft. EXTREMITIES: Without asymmetry. NEUROLOGIC: Grossly nonfocal. LABORATORY DATA: White count 7.4, hemoglobin 10.9, platelets 304. Hemoglobin has gone from 14.3 to 10.9, which I suspect secondary mostly to volume resuscitation. Sodium 143, potassium 3.6, chloride 97, bicarbonate 33, BUN 21, creatinine 0.74, magnesium is 0.8. ASSESSMENT: 1. Patient has hypomagnesemia and hypokalemia consistent with his alcoholism. 2. Extreme deconditioning. 3. Intravascular volume depletion responding to volume resuscitation. 4. Acute renal insufficiency on top of chronic kidney disease, most likely. PLAN: Continue IV fluids. Evaluation for placement in the skilled unit is the next step.
[2018-02-11] MEDS: traMADol HCl 50 MG TAB PO PRN ×4 (00:24→22:05)
[2018-02-11] MEDS: Vancomycin HCl 1 GM in Premix Bag 1 BAG IVPB SCH ×2 (01:22→09:11)
--- NOTE | 2018-02-11 01:42 | CON ---
DATE OF CONSULTATION: 02/10/2018 DATE OF ADMISSION: 02/07/2018 INDICATION FOR CONSULTATION: Nonsustained ventricular tachycardia. HISTORY OF PRESENT ILLNESS: This is a very unfortunate 57-year-old gentleman who in the past h as a history of significant alcohol use and was found down at home after having an episode apparently of binge drinking. He says he usually drinks in the evening on the weekends. He may be drinking al l weekend or all day. He says he drinks alcohol. He drinks beer as well as vodka. He was found samantha n by his sister at home. He has significant elevation of his CPK compatible with rhabdomyolysis. He also had significant renal insufficiency. Creatinine was 4.8 and is now decreased down to 0.7, pota ssium 2.6 and magnesium was 0.8. We were asked to see this patient due to nonsustained ventricular t achycardia which most likely was induced with low magnesium and hypokalemia. He has had no previous history of cardiac problems that we are aware of, but he has not had an echocardiogram. He may well have cardiomyopathy. We will need to evaluate an echocardiogram as a first step in his overall evalu ation. He could certainly have underlying coronary artery disease, but he denied any significant yvette st pain or any other previous cardiac history and most likely he will need to undergo further evaluat ion in the future. He still remains very confused and his history is somewhat unreliable. He does n ot know where he is. He does know that who he is, but he is unaware of exactly what time it is, what day it is and where he is. He thinks he is in [place] and he believes that he is in the clinic [facility]. Otherwise, he denies any cardiac complaints such as chest pain or significant shortness of b reath. He does occasionally have some shortness of breath. He says if he overexerts himself, but he cannot explain exactly what this is and nor can explain when he has occasional chest discomfort whic h he describes as being somewhat heavy at times, but just could not explain exactly how he feels. PAST MEDICAL HISTORY: Significant for hypertension, shoulder surgery, and appendectomy. SOCIAL HISTORY: He denies any significant tobacco abuse, but has significant alcohol use. ALLERGIES: He is allergic to PENICILLIN. MEDICATIONS: I do not believe he was on any routine medications prior to admission. At this time, jonny mehta has been placed on supplements for replacement of his magnesium and potassium. He is also on antib iotics with Maxipime. He is on Pepcid. He has been given Folvite, as well as his magnesium, multivi tamins, potassium. He has also been placed on thiamine and vancomycin. P.r.n. medications. FAMILY HISTORY: Noncontributory. REVIEW OF SYSTEMS: Difficult to obtain a true review of systems in this gentleman, but he denies any significant complaints except occasional shortness of breath, occasional chest discomfort and occasi onal lower extremity edema which is unremarkable at this time. He does admit to having some episodes of syncope or passing out in the past which he describes as being falls. He also complained of some slight blurred vision at times and occasional coughing. He also said that occasionally he has had s ome blood in the stools and has a history of rheumatoid arthritis according to him. PHYSICAL EXAMINATION: GENERAL: Reveals a middle-aged gentleman who actually appears somewhat older than his stated age. VITAL SIGNS: His blood pressure is 157/93, heart rate is 62 and regular, temperature is 99.7, respir atory rate 16. HEENT: Shows some mild ecchymosis after previous falls apparently. Carotid pulses are present witho ut bruits. CHEST: Actually clear, but he has significant bruising over the posterior thoracic area all the way down the back on both sides. CARDIOVASCULAR: Reveals a regular rate and rhythm. There were no gross murmurs noted. ABDOMEN: Soft, flat and nontender. Positive bowel sounds are present. EXTREMITIES: Show no clubbing or cyanosis. Pedal pulses are present. He also has some ecchymosis i n the lower extremities. NEUROLOGIC: Patient still remains confused, but otherwise no gross focal motor deficits were noted t hat I can determine. LABORATORY DATA: His laboratory data as noted above for the potassium of 2.6, magnesium 0.8, calcium 7.4. His CK was 6450 on admission and it is now decreased down to 1658. Cardiac enzymes are unrema rkable. His alcohol level actually when he arrived was less than 10, which is somewhat suspicious fo r someone who has been drinking, but perhaps he had a syncopal episode, uncertain as to how long he w as down before he was found and WBC of 7.4, hemoglobin 10.9. IMPRESSION: 1. Nonsustained ventricular tachycardia, most likely associated with hypomagnesemia as well as hypok alemia. These are being replaced and apparently there have been no further episodes of arrhythmias. He continued to have further arrhythmias. Further evaluation will be indicated, but I will check an echocardiogram at this time to evaluate his left ventricular systolic function. In the future, it w ould be advisable for him to undergo some type of stress testing. Should he be found to have a negat veronica stress test and also a well preserved left ventricular systolic function, the risk of an acute ca rdiac event due to nonsustained ventricular tachycardia would be most likely less than 1%. If he con tinues to have other problems, an electrophysiological evaluation would be indicated. 2. History of severe alcohol abuse. This patient most likely will need to go to some type of rehabi litation center to see if he can be released curtailed his alcohol intake. 3. Hypertension. Once he is stable from his alcohol or his binge episodes and becomes more alert, t hen we can adjust his medications as needed.
[2018-02-11] MEDS: Sodium Chloride 0.9% 1,000 ML IV SCH (02:17)
[2018-02-11] MEDS: Cefepime 2 GM in Sodium Chloride 0.9% 100 ML IVPB SCH (03:56)
[2018-02-11 06:41] LABS: Anion Gap 17 mmol/L (10-20); BUN (Urea Nitrogen) 12 mg/dL (8.4-25.7); Calc. Creatinine Clearance 128 mL/min (70-130); Calcium 7.6 mg/dL (7.8-10.44); Carbon Dioxide 26 mmol/L (22-29); Chloride 94 mmol/L (98-107); Estimated GFR-MDRD Greater than 90; Glucose 91 mg/dL (70-105); Sodium 134 mmol/L (136-145)
[2018-02-11] MEDS ORDERED: Potassium Chloride 40 MEQ, Magnesium Sulfate 4 GM in Sodium Chloride 0.9% 250 ML 250 ML IVPB SCH (08:30)
--- NOTE | 2018-02-11 09:01 | PRG ---
DATE OF SERVICE: 02/11/2018 SUBJECTIVE: Mr. Esquivel is a 57-year-old white male who was seen by the Renal Service for his acute kidney injury. Initially, I felt that this was all hemodynamically mediated renal dysfunction. He was empirically given volume repletion, which improved his renal function. Urine sediment also has s howed evidence of acute tubular necrosis. He most likely has a superimposed patchy acute tubular nec rosis. He was given isotonic bicarbonate due to the elevated CPK. This has now been changed to norm al saline. His p.o. intake is still below his baseline. He continued to receive normal saline 100 m L an hour. He is tolerating the said treatment. He denies any chest pain, shortness of breath. OBJECTIVE: VITAL SIGNS: Blood pressure is 153/103 with a heart rate of 84, respiratory rate 20, temperature 99. 4, pulse ox 93%. GENERAL: Awake, alert, comfortable, not in distress SKIN: Adequate turgor. HEENT: He has pinkish conjunctivae, anicteric sclerae. NECK: No neck mass, no carotid bruits, no JVD. CHEST: No deformities. LUNGS: Clear breath sounds, no wheezing, no crackles. HEART: Normal sinus rhythm. No murmur, no gallops, no rubs. ABDOMEN: Globular, soft, nontender. No masses. EXTREMITIES: No edema, no deformities. MEDICATIONS: Medications of 02/11/2018 reviewed. LABORATORY DATA: Laboratories of 02/10/2018; white count 7.4, hemoglobin 10.9. On 02/11/2018; sodiu m was 134, potassium 3, chloride 94, carbon dioxide 26, BUN 12, creatinine 0.68, calcium 7.6. ASSESSMENT AND PLAN: 1. Acute kidney injury - much improved with volume repletion. Creatinine is now noted to be within normal. Once his p.o. intake is much better, we can consider discontinuing the normal saline. 2. Hypertension. Start nifedipine 30 mg XL tab once a day. 3. Mild hypokalemia, p.r.n. potassium replacement. 4. Rhabdomyolysis - resolved. 5. Due to the much improved renal function, we will be signing off. Please call if needed.
[2018-02-11] MEDS: NIFEdipine XL 30 MG TAB PO SCH (09:14)
[2018-02-11] MEDS: Famotidine 20 MG TAB PO SCH ×2 (09:15→20:40)
[2018-02-11] MEDS: Folic Acid 1 MG TAB PO SCH (09:15)
[2018-02-11] MEDS: Multivitamin W/ Minerals 1 TAB PO SCH (09:15)
[2018-02-11] MEDS: Magnesium Oxide 400 MG TAB PO SCH (09:15)
--- NOTE | 2018-02-11 10:34 | PRG ---
DATE OF SERVICE: 02/11/2018 Mr. Esquivel has no complaints. PHYSICAL EXAMINATION: VITAL SIGNS: He is afebrile, heart rates 80, blood pressure 183/92, respiratory rate 16, oximetry is 93 on room air. LUNGS: His lungs are clear. HEART: Regular rhythm. ABDOMEN: Abdomen is soft. EXTREMITIES: Without asymmetry. He remains weak. He has only sat on the side of the bed. Denies getting up in the chair yesterday. IMPRESSION: 1. Extreme deconditioning. He will need penitentiary placement. 2. Electrolyte imbalance consistent with his alcoholism. 3. Intravascular volume depletion, responding to hydration, renal function improving. PLAN: Continue supportive care. Cultures have been reviewed again. I see no reason to continue him on broad antimicrobial therapy at this point.
--- NOTE | 2018-02-11 13:21 | PDOC.CTH ---
<Selena Blair - Last Filed: 02/11/18 13:17> Cardiology Progress Note - Subjective The pt seen and examined. The pt cont. confused. - Objective Vital Signs Temp Pulse Pulse Pulse Resp BP BP 02/11/18 12:00 98.8 F 87 16 02/11/18 10:15 63 99 159/95 H 02/11/18 09:14 80 183/92 H 02/11/18 08:00 99.4 F 77 16 02/11/18 07:50 99.4 F 77 16 02/11/18 03:49 99.4 F 84 20 153/104 H BP BP Pulse Ox 02/11/18 12:00 141/90 H 96 02/11/18 10:15 158/109 H 02/11/18 09:14 02/11/18 08:00 183/92 H 95 02/11/18 07:50 93 L 02/11/18 03:49 153/104 H 93 L Admit Weight 172 lb 7 oz Weight 164 lb 8 oz 02/10/18 02/11/18 02/12/18 06:59 06:59 06:59 Intake Total 2918 4098 Output Total 4910 6425 Balance -1991 - Physical Examination General/Neuro: other: (confused) Lungs: CTA (diminished at bases) Heart: RRR Abdomen: soft Extremities: other: (No edema) - Telemetry Telemetry Rhythm: SR - Labs Result Diagrams: 02/10/18 08:47 02/11/18 05:41 Troponin/CKMB CK-MB (CK-2) 10.4 ng/mL (0-6.6) H* 02/08/18 04:26 Troponin I 0.046 ng/mL (< 0.028) H 02/08/18 04:26 - Assessment/Plan 1. S/p Non-sustained V tach - remains in SR; cont. to monitor on tele 2. Rhabdomyolysis - Cont. NS IV; 3. HTN - improving 4. IRA - stable 5. Hypokalemia - K replacement 6. Abnormal LFTs possible due to ETOH abuse - gradually improving; 7. ETOH abuse - on ASE protocol MAR reviewed Review of Systems - Review of Systems Constitutional: reports: no symptoms reported EENTM: reports: no symptoms reported Respiratory: reports: no symptoms reported Cardiac (ROS): reports: no symptoms reported ABD/GI: reports: no symptoms reported : reports: no symptoms reported <Nancy Burton - Last Filed: 02/11/18 21:43> Cardiology Progress Note - Objective Vital Signs Temp Pulse Pulse Pulse Pulse Resp BP 02/11/18 20:00 97.8 F 71 20 150/88 H 02/11/18 16:38 98.4 F 67 18 02/11/18 12:00 98.8 F 87 16 02/11/18 10:15 63 137 H 99 BP BP BP BP Pulse Ox 02/11/18 20:00 150/88 H 96 02/11/18 16:38 143/95 H 97 02/11/18 12:00 141/90 H 96 02/11/18 10:15 159/95 H 117/82 158/69 H Admit Weight 172 lb 7 oz Weight 164 lb 8 oz 02/10/18 02/11/18 02/12/18 06:59 06:59 06:59 Intake Total 2919 4894 1560 Output Total 2427 6466 2871 [facility]1992 -2327 -1312 - Labs Result Diagrams: 02/11/18 16:27 02/11/18 20:08 Troponin/CKMB CK-MB (CK-2) 10.4 ng/mL (0-6.6) H* 02/08/18 04:26 Troponin I 0.046 ng/mL (< 0.028) H 02/08/18 04:26 - Assessment/Plan Pt. seen and eval. by me. I agree with the A/P by the [employer]. He is somewhat confused this PM. He has not had any further arrhythmias. The K is on the low side but being replaced. The ECHO indicates a normal LV function. See full report. The cardiac status is stable at this time.
--- NOTE | 2018-02-11 14:56 | PDOC.PN ---
- Subjective Encounter Start Date: 02/11/18 Encounter Start Time: 08:00 Pt seen for followup of rhabdomyolysis. Feels better. No chest pain, shortness of breath, fevers or chills. - Objective Resuscitation Status: Resuscitation Status FULL:Full Resuscitation MAR Reviewed: Yes Vital Signs & Weight: Vital Signs (12 hours) Temp Pulse Pulse Pulse Pulse Resp BP 02/11/18 12:00 98.8 F 87 16 02/11/18 10:15 63 137 H 99 02/11/18 09:14 80 183/92 H 02/11/18 08:00 99.4 F 77 16 02/11/18 07:50 99.4 F 77 16 02/11/18 03:49 99.4 F 84 20 153/104 H BP BP BP BP Pulse Ox 02/11/18 12:00 141/90 H 96 02/11/18 10:15 159/95 H 117/82 158/69 H 02/11/18 09:14 02/11/18 08:00 183/92 H 95 02/11/18 07:50 93 L 02/11/18 03:49 153/104 H 93 L Weight Admit Weight 172 lb 7 oz Weight 164 lb 8 oz I&O: 02/10/18 02/11/18 02/12/18 06:59 06:59 06:59 Intake Total 2918 4098 Output Total 4910 6425 [facility] -1990 Result Diagrams: 02/10/18 08:47 02/11/18 05:41 EKG Reviewed by me: Yes (Tele: NSR, 5-beat SVT) Phys Exam - Physical Examination Constitutional: NAD HEENT: moist MMs, oral pharynx no lesions, 2+ tonsils icterus Neck: no nodes, no JVD, supple, full ROM Respiratory: no wheezing, no rales, no rhonchi, clear to auscultation bilateral Cardiovascular: RRR, no rub S1, S2 Gastrointestinal: soft, non-tender, no distention, positive bowel sounds Neurological: moves all 4 limbs Psychiatric: normal affect Deviation from normal: Oriented to person and place, not to time Dx/Plan (1) Rhabdomyolysis Code(s): M62.82 - RHABDOMYOLYSIS Status: Acute Comment: Improving, encourage oral intake and follow CK level (2) Hypokalemia Code(s): E87.6 - HYPOKALEMIA Status: Acute Comment: replace potassium and recheck (3) Abnormal LFTs Code(s): R94.5 - ABNORMAL RESULTS OF LIVER FUNCTION STUDIES Status: Acute Comment: Improving, recheck tomorrow (4) Arrhythmia Code(s): I49.9 - CARDIAC ARRHYTHMIA, UNSPECIFIED Status: Acute Comment: Improved, likely due to hypokalemia and hypomagnesemia (5) HTN (hypertension) Code(s): I10 - ESSENTIAL (PRIMARY) HYPERTENSION Status: Chronic Comment: continue to monitor vital signs, titrate antihypertensives as needed (6) Sepsis Code(s): A41.9 - SEPSIS, UNSPECIFIED ORGANISM Status: Suspected Comment: continues to have low-grade fevers, cultures negative so far (7) Alcohol abuse Code(s): F10.10 - ALCOHOL ABUSE, UNCOMPLICATED Status: Chronic Comment: on ASE protocol (8) IRA (acute kidney injury) Code(s): N17.9 - ACUTE KIDNEY FAILURE, UNSPECIFIED Status: Resolved - Plan * . Review of Systems - Medications/Allergies Allergies/Adverse Reactions: Allergies Allergy/AdvReac Type Severity Reaction Status Date / Time Penicillins Allergy Verified 02/08/18 01:46 Medications: Current Medications Acetaminophen (Tylenol) 650 mg PO Q4H PRN PRN Reason: Headache/Fever or Pain Last Admin: 02/10/18 00:27 Dose: 650 mg Diazepam (Valium) 5 mg PO Q4H PRN PRN Reason: FOR ASE 10 OR GREATER Last Admin: 02/10/18 00:27 Dose: 5 mg Famotidine (Pepcid) 20 mg PO BID [facility] Last Admin: 02/11/18 09:15 Dose: 20 mg Folic Acid (Folvite) 1 mg PO DAILY [facility] Last Admin: 02/11/18 09:15 Dose: 1 mg Hydralazine HCl (Apresoline) 10 mg SLOW IVP Q4H PRN PRN Reason: SBP Greater Than 170 Last Admin: 02/10/18 23:50 Dose: 10 mg Iron/Minerals/Multivitamins (Theragran M) 1 tab PO DAILY [facility] Last Admin: 02/11/18 09:15 Dose: 1 tab Magnesium Oxide (Magnesium Oxide) 400 mg PO DAILY [facility] Last Admin: 02/11/18 09:15 Dose: 400 mg Miscellaneous (Ase Protocol) 1 each FS ONE [facility] Stop: 02/17/18 20:19 Nifedipine (Procardia Xl) 30 mg PO DAILY [facility] Last Admin: 02/11/18 09:14 Dose: 30 mg Ondansetron HCl (Zofran Odt) 4 mg PO Q6H PRN PRN Reason: Nausea/Vomiting Ondansetron HCl (Zofran) 4 mg IVP Q6H PRN PRN Reason: Nausea/Vomiting Last Admin: 02/09/18 11:28 Dose: 4 mg Sodium Chloride (Flush - Normal Saline) 10 ml IVF Q12HR [facility] Last Admin: 02/11/18 09:15 Dose: Not Given Sodium Chloride (Flush - Normal Saline) 10 ml IVF PRN PRN PRN Reason: Saline Flush Last Admin: 02/10/18 23:50 Dose: 10 ml Thiamine HCl (Thiamine) 100 mg PO DAILY [facility] Last Admin: 02/11/18 09:15 Dose: 100 mg Tramadol HCl (Ultram) 50 mg PO Q6H PRN PRN Reason: Pain Last Admin: 02/11/18 09:18 Dose: 50 mg
[2018-02-11 16:34] LABS: #Eosinphils 0.1 thou/uL (0.0-0.7); #Lymphocytes 1.2 thou/uL (1.20-3.40); #Monocytes 1.5 thou/uL (0.11-0.59); #Neutrophils 8.2 thou/uL (1.40-6.50); %Basophils 0.1 % (0.0-1.0); %Eosinophils 0.7 % (0.0-10.0); %Lymphocytes 10.5 % (21.0-51.0); %Monocytes 13.9 % (0.0-10.0); %Neutrophils 74.8 % (42.0-75.0); Hemoglobin 12.8 g/dL (14.0-18.0); Mean Corpuscular HGB CONC 33.2 g/dL (32.0-36.0); Mean Corpuscular Hemoglobin 32.2 pg (27.0-31.0); Mean Corpuscular Volume 97.1 fL (78.0-98.0); Mean Platelet Volume 7.5 fL (7.4-10.4); Platelet Count 443 thou/uL (130-400); RBC Distribution Width 14.9 % (11.5-14.5); Red Blood Cell (RBC) Count 3.98 mill/uL (4.70-6.10)
[2018-02-11 20:33] LABS: Magnesium 1.5 mg/dL (1.6-2.6); Potassium 3.2 mmol/L (3.5-5.1)
[2018-02-11] MEDS ORDERED: diphenhydrAMINE 25 MG CAP PO SCH (23:30)
[2018-02-12 05:35] LABS: #Basophils 0.1 thou/uL (0.0-0.2); #Eosinphils 0.1 thou/uL (0.0-0.7); #Lymphocytes 1.5 thou/uL (1.20-3.40); #Monocytes 1.3 thou/uL (0.11-0.59); #Neutrophils 9.6 thou/uL (1.40-6.50); %Basophils 0.6 % (0.0-1.0); %Lymphocytes 11.6 % (21.0-51.0); %Monocytes 10.5 % (0.0-10.0); %Neutrophils 76.3 % (42.0-75.0); Hemoglobin 13.6 g/dL (14.0-18.0); Mean Corpuscular Hemoglobin 32.7 pg (27.0-31.0); Mean Corpuscular Volume 96.2 fL (78.0-98.0); Mean Platelet Volume 7.4 fL (7.4-10.4); Platelet Count 528 thou/uL (130-400); RBC Distribution Width 14.8 % (11.5-14.5); Red Blood Cell (RBC) Count 4.15 mill/uL (4.70-6.10); White Blood Cell (WBC) Count 12.6 thou/uL (4.8-10.8)
[2018-02-12 06:02] LABS: ALT (SGPT) 94 U/L (8-55); AST (SGOT) 70 U/L (5-34); Albumin 2.9 g/dL (3.5-5.0); Alkaline Phosphatase 135 U/L (40-150); Anion Gap 17 mmol/L (10-20); BUN (Urea Nitrogen) 8 mg/dL (8.4-25.7); Bilirubin, Total 1.4 mg/dL (0.2-1.2); CK (CPK) 667 U/L (30-200); Calc. Creatinine Clearance 135 mL/min (70-130); Calcium 7.9 mg/dL (7.8-10.44); Carbon Dioxide 23 mmol/L (22-29); Chloride 93 mmol/L (98-107); Estimated GFR-MDRD Greater than 90; Globulin 3.4 g/dL (2.4-3.5); Glucose 105 mg/dL (70-105); Protein, Total 6.3 g/dL (6.0-8.3); Sodium 130 mmol/L (136-145)
[2018-02-12] MEDS: Folic Acid 1 MG TAB PO SCH (08:29)
[2018-02-12] MEDS: Famotidine 20 MG TAB PO SCH ×2 (08:29→21:22)
[2018-02-12] MEDS: NIFEdipine XL 30 MG TAB PO SCH (08:29)
[2018-02-12] MEDS: Multivitamin W/ Minerals 1 TAB PO SCH (08:29)
[2018-02-12] MEDS: Magnesium Oxide 400 MG TAB PO SCH (08:29)
[2018-02-12] MEDS: Potassium Chloride 20 MEQ TAB PO SCH ×2 (09:29→12:55)
[2018-02-12] MEDS: traMADol HCl 50 MG TAB PO PRN ×2 (09:58→17:13)
--- NOTE | 2018-02-12 12:30 | PDOC.CTH ---
<Selena Blair - Last Filed: 02/12/18 12:26> Cardiology Progress Note - Subjective The pt seen and examined. NO overnight events. No cardiac complains. He is more alerted today. - Objective Vital Signs Temp Pulse Resp BP BP Pulse Ox 02/12/18 11:40 99.6 F 90 16 137/105 H 137/105 H 97 02/12/18 08:29 78 136/101 H 02/12/18 07:25 99.4 F 78 16 136/101 H 136/101 H 94 L 02/12/18 04:18 98.7 F 97 16 149/95 H 149/95 H 95 Admit Weight 172 lb 7 oz Weight 163 lb 02/11/18 02/12/18 02/13/18 06:59 06:59 06:59 Intake Total 4098 2353 Output Total 6495 4185 Balance -7823 -7409 - Physical Examination General/Neuro: alert & oriented x3 Neck: no JVD present Lungs: CTA Heart: RRR Abdomen: soft Extremities: other: (SR) - Labs Result Diagrams: 02/12/18 05:10 02/12/18 05:10 Troponin/CKMB CK-MB (CK-2) 10.4 ng/mL (0-6.6) H* 02/08/18 04:26 Troponin I 0.046 ng/mL (< 0.028) H 02/08/18 04:26 - Assessment/Plan 1. S/p Non-sustained V tach - remains in SR; cont. to monitor on tele 2. Rhabdomyolysis - Cont. NS IV; 3. HTN - improving 4. IRA - stable 5. Hypokalemia - K replacement by PCP 6. Abnormal LFTs possible due to ETOH abuse - gradually improving; 7. ETOH abuse - on ASE protocol MAR reviewed * Echo on 02/11/18 showed EF 60-65%, grade I diastolic dysfunction, mild MR, mild AR, trace TR. Review of Systems - Review of Systems Constitutional: reports: no symptoms reported EENTM: reports: no symptoms reported Respiratory: reports: no symptoms reported Cardiac (ROS): reports: no symptoms reported ABD/GI: reports: no symptoms reported : reports: no symptoms reported <Nancy Burton - Last Filed: 02/12/18 13:48> Cardiology Progress Note - Objective Vital Signs Temp Pulse Resp BP BP Pulse Ox 02/12/18 11:40 99.6 F 90 16 137/105 H 137/105 H 97 02/12/18 08:29 78 136/101 H 02/12/18 07:25 99.4 F 78 16 136/101 H 136/101 H 94 L 02/12/18 04:18 98.7 F 97 16 149/95 H 149/95 H 95 Admit Weight 172 lb 7 oz Weight 163 lb 02/11/18 02/12/18 02/13/18 06:59 06:59 06:59 Intake Total 4093 2353 Output Total 7309 9220 Balance -6840 -9565 - Labs Result Diagrams: 02/12/18 05:10 02/12/18 05:10 Troponin/CKMB CK-MB (CK-2) 10.4 ng/mL (0-6.6) H* 02/08/18 04:26 Troponin I 0.046 ng/mL (< 0.028) H 02/08/18 04:26 - Assessment/Plan Pt. seen and eval. by me. I agree with the a/P by the INTERNAL AFFAIRS INVESTIGATOR. No further arrhythmias. Mg and K still on the low side and being replaced. cardiac status is stable. Chest clear. RRR. I will sign off. If any new cardiac issues please contact us again.
[2018-02-12] MEDS: Acetaminophen 325 MG TAB PO PRN (12:56)
--- NOTE | 2018-02-12 13:49 | PDOC.PN ---
- Subjective Encounter Start Date: 02/12/18 Encounter Start Time: 07:00 Pt seen for followup re: rhabdomyolysis. Denies chest pain, shortness of breath. feels better. - Objective Resuscitation Status: Resuscitation Status FULL:Full Resuscitation Vital Signs & Weight: Vital Signs (12 hours) Temp Pulse Resp BP BP Pulse Ox 02/12/18 11:40 99.6 F 90 16 137/105 H 137/105 H 97 02/12/18 08:29 78 136/101 H 02/12/18 07:25 99.4 F 78 16 136/101 H 136/101 H 94 L 02/12/18 04:18 98.7 F 97 16 149/95 H 149/95 H 95 Weight Admit Weight 172 lb 7 oz Weight 163 lb I&O: 02/11/18 02/12/18 02/13/18 06:59 06:59 06:59 Intake Total 4098 2353 Output Total 6424 6855 Balance -0187 -7694 Result Diagrams: 02/12/18 05:10 02/12/18 05:10 Phys Exam - Physical Examination Constitutional: NAD HEENT: moist MMs, sclera anicteric, oral pharynx no lesions, 2+ tonsils Neck: no nodes, no JVD, supple, full ROM Respiratory: no wheezing, no rales, no rhonchi, clear to auscultation bilateral Cardiovascular: RRR, no rub S1, S2 Gastrointestinal: soft, non-tender, no distention, positive bowel sounds Neurological: moves all 4 limbs Psychiatric: normal affect Deviation from normal: Oriented to person and place, not to time Deviation from normal: multiple bruises Dx/Plan (1) Rhabdomyolysis Code(s): M62.82 - RHABDOMYOLYSIS Status: Acute Comment: CK improving (2) Hypokalemia Code(s): E87.6 - HYPOKALEMIA Status: Acute Comment: replace potassium (3) Abnormal LFTs Code(s): R94.5 - ABNORMAL RESULTS OF LIVER FUNCTION STUDIES Status: Acute Comment: Improving (4) Arrhythmia Code(s): I49.9 - CARDIAC ARRHYTHMIA, UNSPECIFIED Status: Acute Comment: Improved, monitor potassium and magnesium levels (5) HTN (hypertension) Code(s): I10 - ESSENTIAL (PRIMARY) HYPERTENSION Status: Chronic Comment: Improving (6) Sepsis Code(s): A41.9 - SEPSIS, UNSPECIFIED ORGANISM Status: Suspected Comment: continues to have low-grade fevers, all cultures negative so far. Antibiotics have been discontinued (7) Alcohol abuse Code(s): F10.10 - ALCOHOL ABUSE, UNCOMPLICATED Status: Chronic Comment: on ASE protocol (8) IRA (acute kidney injury) Code(s): N17.9 - ACUTE KIDNEY FAILURE, UNSPECIFIED Status: Resolved - Plan * . Review of Systems - Review of Systems Constitutional: negative: fever, chills, sweats, weakness, malaise Respiratory: negative: Cough, Shortness of Breath, SOB with Excertion, Pleuritic Pain, Wheezing Cardiovascular: negative: chest pain, palpitations, orthopnea, paroxysmal nocturnal dyspnea, edema, light headedness Gastrointestinal: negative: Nausea, Vomiting, Abdominal Pain, Diarrhea, Constipation, Melena, Hematochezia Skin: negative: Rash, Lesions, Sidney, Bruising Neurological: negative: Weakness, Numbness, Incoordination, Change in Speech, Confusion, Seizures - Medications/Allergies Allergies/Adverse Reactions: Allergies Allergy/AdvReac Type Severity Reaction Status Date / Time Penicillins Allergy Verified 02/08/18 01:46 Medications: Current Medications Acetaminophen (Tylenol) 650 mg PO Q4H PRN PRN Reason: Headache/Fever or Pain Last Admin: 02/12/18 12:56 Dose: 650 mg Diazepam (Valium) 5 mg PO Q4H PRN PRN Reason: FOR ASE 10 OR GREATER Last Admin: 02/10/18 00:27 Dose: 5 mg Famotidine (Pepcid) 20 mg PO BID [facility] Last Admin: 02/12/18 08:29 Dose: 20 mg Folic Acid (Folvite) 1 mg PO DAILY [facility] Last Admin: 02/12/18 08:29 Dose: 1 mg Hydralazine HCl (Apresoline) 10 mg SLOW IVP Q4H PRN PRN Reason: SBP Greater Than 170 Last Admin: 02/10/18 23:50 Dose: 10 mg Iron/Minerals/Multivitamins (Theragran M) 1 tab PO DAILY [facility] Last Admin: 02/12/18 08:29 Dose: 1 tab Magnesium Oxide (Magnesium Oxide) 400 mg PO DAILY [facility] Last Admin: 02/12/18 08:29 Dose: 400 mg Miscellaneous (Ase Protocol) 1 each FS ONE [facility] Stop: 02/17/18 20:19 Nifedipine (Procardia Xl) 30 mg PO DAILY [facility] Last Admin: 02/12/18 08:29 Dose: 30 mg Ondansetron HCl (Zofran Odt) 4 mg PO Q6H PRN PRN Reason: Nausea/Vomiting Ondansetron HCl (Zofran) 4 mg IVP Q6H PRN PRN Reason: Nausea/Vomiting Last Admin: 02/09/18 11:28 Dose: 4 mg Sodium Chloride (Flush - Normal Saline) 10 ml IVF Q12HR [facility] Last Admin: 02/12/18 08:29 Dose: 10 ml Sodium Chloride (Flush - Normal Saline) 10 ml IVF PRN PRN PRN Reason: Saline Flush Last Admin: 02/10/18 23:50 Dose: 10 ml Thiamine HCl (Thiamine) 100 mg PO DAILY [facility] Last Admin: 02/12/18 08:29 Dose: 100 mg Tramadol HCl (Ultram) 50 mg PO Q6H PRN PRN Reason: Pain Last Admin: 02/12/18 09:58 Dose: 50 mg
--- NOTE | 2018-02-12 16:36 | PRG ---
DATE OF SERVICE: 02/12/2018 SUBJECTIVE: Mr. Esquivel is flat in bed when I saw him again today. OBJECTIVE: VITAL SIGNS: His blood pressure has been a little elevated at 137/105, heart rate is 90, oximetry is 97 on room air. He is afebrile. LUNGS: Clear. HEART: Regular rhythm. ABDOMEN: Soft. LABORATORY DATA: White count 12.6, hemoglobin 13.6, platelets 528,000. Sodium 130, potassium 3, chl oride 92, bicarbonate 22, BUN 8, creatinine 0.64. IMPRESSION: 1. Severe intravascular volume depletion, essentially resolved. 2. Heavy alcohol use prior to admission. 3. Extreme deconditioning. He is not very motivated to move around from what I have seen so far. I would be surprised if he ever becomes strong enough to go back home. Placement to skilled facility is the next step in my opinion. All of his cultures remain negative.
[2018-02-13 06:07] LABS: #Eosinphils 0.1 thou/uL (0.0-0.7); #Lymphocytes 1.4 thou/uL (1.20-3.40); #Monocytes 1.2 thou/uL (0.11-0.59); #Neutrophils 10.5 thou/uL (1.40-6.50); %Basophils 0.3 % (0.0-1.0); %Eosinophils 0.8 % (0.0-10.0); %Lymphocytes 10.6 % (21.0-51.0); %Monocytes 8.8 % (0.0-10.0); %Neutrophils 79.5 % (42.0-75.0); Hemoglobin 12.7 g/dL (14.0-18.0); Mean Corpuscular HGB CONC 33.1 g/dL (32.0-36.0); Mean Corpuscular Volume 96.6 fL (78.0-98.0); Mean Platelet Volume 7.3 fL (7.4-10.4); Platelet Count 592 thou/uL (130-400); RBC Distribution Width 15.1 % (11.5-14.5); Red Blood Cell (RBC) Count 3.97 mill/uL (4.70-6.10); White Blood Cell (WBC) Count 13.2 thou/uL (4.8-10.8)
[2018-02-13 06:19] LABS: ALT (SGPT) 70 U/L (8-55); AST (SGOT) 43 U/L (5-34); Albumin 2.7 g/dL (3.5-5.0); Alkaline Phosphatase 126 U/L (40-150); Anion Gap 17 mmol/L (10-20); BUN (Urea Nitrogen) 10 mg/dL (8.4-25.7); Bilirubin, Total 1.2 mg/dL (0.2-1.2); CK (CPK) 254 U/L (30-200); Calc. Creatinine Clearance 129 mL/min (70-130); Calcium 8.1 mg/dL (7.8-10.44); Carbon Dioxide 22 mmol/L (22-29); Chloride 98 mmol/L (98-107); Estimated GFR-MDRD Greater than 90; Globulin 2.7 g/dL (2.4-3.5); Glucose 101 mg/dL (70-105); Potassium 4.1 mmol/L (3.5-5.1); Protein, Total 5.4 g/dL (6.0-8.3); Sodium 133 mmol/L (136-145)
[2018-02-13] MEDS: Multivitamin W/ Minerals 1 TAB PO SCH (09:25)
[2018-02-13] MEDS: Famotidine 20 MG TAB PO SCH ×2 (09:26→20:54)
[2018-02-13] MEDS: Magnesium Oxide 400 MG TAB PO SCH (09:26)
[2018-02-13] MEDS: Folic Acid 1 MG TAB PO SCH (09:26)
[2018-02-13] MEDS: NIFEdipine XL 30 MG TAB PO SCH (09:28)
[2018-02-13] MEDS: traMADol HCl 50 MG TAB PO PRN (10:12)
[2018-02-13] MEDS ORDERED: Acetaminophen 1,000 MG in Premix Bag 1 BAG IVPB PRN (11:38)
[2018-02-13] MEDS: Acetaminophen 325 MG TAB PO PRN (22:54)
[2018-02-14 05:45] LABS: #Basophils 0.1 thou/uL (0.0-0.2); #Eosinphils 0.1 thou/uL (0.0-0.7); #Lymphocytes 1.9 thou/uL (1.20-3.40); #Monocytes 1.1 thou/uL (0.11-0.59); #Neutrophils 8.9 thou/uL (1.40-6.50); %Basophils 0.5 % (0.0-1.0); %Lymphocytes 15.5 % (21.0-51.0); %Monocytes 9.5 % (0.0-10.0); %Neutrophils 73.5 % (42.0-75.0); Hemoglobin 13.2 g/dL (14.0-18.0); Mean Corpuscular HGB CONC 33.8 g/dL (32.0-36.0); Mean Corpuscular Hemoglobin 33.1 pg (27.0-31.0); Mean Corpuscular Volume 98.2 fL (78.0-98.0); Mean Platelet Volume 7.2 fL (7.4-10.4); Platelet Count 613 thou/uL (130-400); RBC Distribution Width 15.3 % (11.5-14.5); Red Blood Cell (RBC) Count 3.99 mill/uL (4.70-6.10); White Blood Cell (WBC) Count 12.1 thou/uL (4.8-10.8)
[2018-02-14] MEDS: traMADol HCl 50 MG TAB PO PRN (05:50)
[2018-02-14 06:19] LABS: ALT (SGPT) 58 U/L (8-55); AST (SGOT) 38 U/L (5-34); Albumin 2.8 g/dL (3.5-5.0); Alkaline Phosphatase 124 U/L (40-150); Anion Gap 17 mmol/L (10-20); BUN (Urea Nitrogen) 10 mg/dL (8.4-25.7); Bilirubin, Total 0.9 mg/dL (0.2-1.2); CK (CPK) 115 U/L (30-200); Calc. Creatinine Clearance 129 mL/min (70-130); Calcium 8.8 mg/dL (7.8-10.44); Carbon Dioxide 20 mmol/L (22-29); Chloride 102 mmol/L (98-107); Estimated GFR-MDRD Greater than 90; Globulin 3.4 g/dL (2.4-3.5); Glucose 76 mg/dL (70-105); Potassium 3.7 mmol/L (3.5-5.1); Protein, Total 6.2 g/dL (6.0-8.3); Sodium 135 mmol/L (136-145)
[2018-02-14] MEDS: Multivitamin W/ Minerals 1 TAB PO SCH (09:42)
[2018-02-14] MEDS: Folic Acid 1 MG TAB PO SCH (09:42)
[2018-02-14] MEDS: Magnesium Oxide 400 MG TAB PO SCH (09:43)
[2018-02-14] MEDS: Famotidine 20 MG TAB PO SCH ×2 (09:43→21:04)
[2018-02-14] MEDS: NIFEdipine XL 30 MG TAB PO SCH (09:43)
[2018-02-14] MEDS: Magnesium Sulfate 2 GM, Admixture Fee 1 EACH in Sodium Chloride 0.9% 100 ML IVPB SCH ×2 (10:39→15:37)
[2018-02-14] MEDS ORDERED: Magnesium 2 GM/NS 0.9% 100 ML 2 GM in Premix Bag 1 BAG IVPB SCH (11:15)
[2018-02-14] MEDS ORDERED: Magnesium Sulfate 2 GM in Sodium Chloride 0.9% 100 ML IVPB SCH (11:45)
--- NOTE | 2018-02-14 18:32 | PDOC.PN ---
- Subjective Encounter Start Date: 02/13/18 Encounter Start Time: 17:00 seen and examined. NAD. No acute events overnight. - Objective Resuscitation Status: Resuscitation Status FULL:Full Resuscitation MAR Reviewed: Yes Vital Signs & Weight: Vital Signs (12 hours) Temp Pulse Resp BP Pulse Ox 02/14/18 12:30 98.6 F 81 16 141/88 H 96 02/14/18 09:43 104 H 02/14/18 08:15 98.6 F 104 H 16 100 02/14/18 07:51 98.6 F 104 H 16 152/102 H 100 Weight Admit Weight 172 lb 7 oz Weight 159 lb I&O: 02/13/18 02/14/18 02/15/18 06:59 06:59 06:59 Intake Total 3480 1479 Output Total 2415 1125 Balance 1065 354 Result Diagrams: 02/14/18 04:12 02/15/18 04:16 Phys Exam - Physical Examination HEENT: PERRLA, moist MMs Neck: no JVD Respiratory: no wheezing, no rales, no rhonchi Cardiovascular: no significant murmur Gastrointestinal: soft, non-tender, no distention Musculoskeletal: no edema, pulses present Neurological: non-focal, normal sensation, moves all 4 limbs Psychiatric: normal affect, A&O x 3 Skin: no rash, normal turgor Dx/Plan (1) Arrhythmia Code(s): I49.9 - CARDIAC ARRHYTHMIA, UNSPECIFIED Status: Acute Comment: Improved, monitor potassium and magnesium levels (2) Rhabdomyolysis Code(s): M62.82 - RHABDOMYOLYSIS Status: Acute Comment: CK improving (3) Alcohol abuse Code(s): F10.10 - ALCOHOL ABUSE, UNCOMPLICATED Status: Chronic Comment: on ASE protocol (4) Dyslipidemia Code(s): E78.5 - HYPERLIPIDEMIA, UNSPECIFIED Status: Chronic (5) HTN (hypertension) Code(s): I10 - ESSENTIAL (PRIMARY) HYPERTENSION Status: Chronic Comment: Improving (6) Sepsis Code(s): A41.9 - SEPSIS, UNSPECIFIED ORGANISM Status: Suspected Comment: continues to have low-grade fevers, all cultures negative so far. Antibiotics have been discontinued (7) IRA (acute kidney injury) Code(s): N17.9 - ACUTE KIDNEY FAILURE, UNSPECIFIED Status: Resolved - Plan * . Review of Systems - Review of Systems Constitutional: negative: fever, chills, sweats, weakness, malaise, other Eyes: negative: Pain, Vision Change, Conjunctivae Inflammation, Eyelid Inflammation, Redness, Other ENT: negative: Ear Pain, Ear Discharge, Nose Pain, Nose Discharge, Nose Congestion, Mouth Pain, Mouth Swelling, Throat Pain, Throat Swelling, Other Respiratory: negative: Cough, Dry, Shortness of Breath, Hemoptysis, SOB with Excertion, Pleuritic Pain, Sputum, Wheezing Cardiovascular: negative: chest pain, palpitations, orthopnea, paroxysmal nocturnal dyspnea, edema, light headedness, other Gastrointestinal: negative: Nausea, Vomiting, Abdominal Pain, Diarrhea, Constipation, Melena, Hematochezia, Other Genitourinary: negative: Dysuria, Frequency, Incontinence, Hematuria, Retention , Other Musculoskeletal: negative: Neck Pain, Shoulder Pain, Arm Pain, Back Pain, Hand Pain, Leg Pain, Foot Pain, Other Skin: negative: Rash, Lesions, Sidney, Bruising, Other Neurological: negative: Weakness, Numbness, Incoordination, Change in Speech, Confusion, Seizures, Other - Medications/Allergies Allergies/Adverse Reactions: Allergies Allergy/AdvReac Type Severity Reaction Status Date / Time Penicillins Allergy Verified 02/08/18 01:46 Medications: Current Medications Acetaminophen (Tylenol) 650 mg PO Q4H PRN PRN Reason: Headache/Fever or Pain Last Admin: 02/13/18 22:54 Dose: 650 mg Diazepam (Valium) 5 mg PO Q4H PRN PRN Reason: FOR ASE 10 OR GREATER Last Admin: 02/10/18 00:27 Dose: 5 mg Famotidine (Pepcid) 20 mg PO BID [facility] Last Admin: 02/16/18 09:57 Dose: 20 mg Folic Acid (Folvite) 1 mg PO DAILY [facility] Last Admin: 02/16/18 09:57 Dose: 1 mg Hydralazine HCl (Apresoline) 10 mg SLOW IVP Q4H PRN PRN Reason: SBP Greater Than 170 Last Admin: 02/10/18 23:50 Dose: 10 mg Iron/Minerals/Multivitamins (Theragran M) 1 tab PO DAILY [facility] Last Admin: 02/16/18 09:56 Dose: 1 tab Magnesium Oxide (Magnesium Oxide) 400 mg PO DAILY [facility] Last Admin: 02/16/18 09:57 Dose: 400 mg Miscellaneous (Ase Protocol) 1 each FS [facility] Stop: 02/17/18 20:19 Nifedipine (Procardia Xl) 30 mg PO DAILY [facility] Last Admin: 02/16/18 09:56 Dose: 30 mg Ondansetron HCl (Zofran Odt) 4 mg PO Q6H PRN PRN Reason: Nausea/Vomiting Ondansetron HCl (Zofran) 4 mg IVP Q6H PRN PRN Reason: Nausea/Vomiting Last Admin: 02/09/18 11:28 Dose: 4 mg Sodium Chloride (Flush - Normal Saline) 10 ml IVF Q12HR [facility] Last Admin: 02/16/18 09:57 Dose: 10 ml Sodium Chloride (Flush - Normal Saline) 10 ml IVF PRN PRN PRN Reason: Saline Flush Last Admin: 02/13/18 12:28 Dose: 10 ml Thiamine HCl (Thiamine) 100 mg PO DAILY [facility] Last Admin: 02/16/18 09:57 Dose: 100 mg Tramadol HCl (Ultram) 50 mg PO Q6H PRN PRN Reason: Pain Last Admin: 02/14/18 05:50 Dose: 50 mg
--- NOTE | 2018-02-14 18:33 | PDOC.PN ---
- Subjective Encounter Start Date: 02/14/18 Encounter Start Time: 18:32 patient seen and examined and not in NAD - Objective Resuscitation Status: Resuscitation Status FULL:Full Resuscitation MAR Reviewed: Yes Vital Signs & Weight: Vital Signs (12 hours) Temp Pulse Resp BP Pulse Ox 02/14/18 12:30 98.6 F 81 16 141/88 H 96 02/14/18 09:43 104 H 02/14/18 08:15 98.6 F 104 H 16 100 02/14/18 07:51 98.6 F 104 H 16 152/102 H 100 Weight Admit Weight 172 lb 7 oz Weight 159 lb I&O: 02/13/18 02/14/18 02/15/18 06:59 06:59 06:59 Intake Total 3480 1479 Output Total 2415 1125 Balance 1065 354 Result Diagrams: 02/14/18 04:12 02/15/18 04:16 Phys Exam - Physical Examination Constitutional: NAD HEENT: PERRLA, moist MMs Neck: no JVD Respiratory: no wheezing, no rales, no rhonchi, clear to auscultation bilateral Cardiovascular: no significant murmur, no rub Gastrointestinal: soft, non-tender, no distention Musculoskeletal: no edema, pulses present Neurological: non-focal, normal sensation, moves all 4 limbs Psychiatric: normal affect, A&O x 3 Skin: no rash, normal turgor Dx/Plan (1) Hypokalemia Code(s): E87.6 - HYPOKALEMIA Status: Acute Comment: replace potassium (2) Rhabdomyolysis Code(s): M62.82 - RHABDOMYOLYSIS Status: Acute Comment: CK improving (3) Alcohol abuse Code(s): F10.10 - ALCOHOL ABUSE, UNCOMPLICATED Status: Chronic Comment: on ASE protocol (4) Dyslipidemia Code(s): E78.5 - HYPERLIPIDEMIA, UNSPECIFIED Status: Chronic (5) HTN (hypertension) Code(s): I10 - ESSENTIAL (PRIMARY) HYPERTENSION Status: Chronic Comment: Improving (6) Hypoalbuminemia Code(s): E88.09 - OTH DISORDERS OF PLASMA-PROTEIN METABOLISM, NEC Status: Chronic Comment: likely due to liver disease (7) Sepsis Code(s): A41.9 - SEPSIS, UNSPECIFIED ORGANISM Status: Suspected Comment: continues to have low-grade fevers, all cultures negative so far. Antibiotics have been discontinued - Plan * . Review of Systems - Review of Systems Constitutional: negative: fever, chills, sweats, weakness, malaise, other Eyes: negative: Pain, Vision Change, Conjunctivae Inflammation, Eyelid Inflammation, Redness, Other ENT: negative: Ear Pain, Ear Discharge, Nose Pain, Nose Discharge, Nose Congestion, Mouth Pain, Mouth Swelling, Throat Pain, Throat Swelling, Other Respiratory: negative: Cough, Dry, Shortness of Breath, Hemoptysis, SOB with Excertion, Pleuritic Pain, Sputum, Wheezing Cardiovascular: negative: chest pain, palpitations, orthopnea, paroxysmal nocturnal dyspnea, edema, light headedness, other Gastrointestinal: negative: Nausea, Vomiting, Abdominal Pain, Diarrhea, Constipation, Melena, Hematochezia, Other Genitourinary: negative: Dysuria, Frequency, Incontinence, Hematuria, Retention , Other Musculoskeletal: negative: Neck Pain, Shoulder Pain, Arm Pain, Back Pain, Hand Pain, Leg Pain, Foot Pain, Other Skin: negative: Rash, Lesions, Sidney, Bruising, Other Neurological: negative: Weakness, Numbness, Incoordination, Change in Speech, Confusion, Seizures, Other - Medications/Allergies Allergies/Adverse Reactions: Allergies Allergy/AdvReac Type Severity Reaction Status Date / Time Penicillins Allergy Verified 02/08/18 01:46 Medications: Current Medications Acetaminophen (Tylenol) 650 mg PO Q4H PRN PRN Reason: Headache/Fever or Pain Last Admin: 02/13/18 22:54 Dose: 650 mg Diazepam (Valium) 5 mg PO Q4H PRN PRN Reason: FOR ASE 10 OR GREATER Last Admin: 02/10/18 00:27 Dose: 5 mg Famotidine (Pepcid) 20 mg PO BID [facility] Last Admin: 02/16/18 09:57 Dose: 20 mg Folic Acid (Folvite) 1 mg PO DAILY [facility] Last Admin: 02/16/18 09:57 Dose: 1 mg Hydralazine HCl (Apresoline) 10 mg SLOW IVP Q4H PRN PRN Reason: SBP Greater Than 170 Last Admin: 02/10/18 23:50 Dose: 10 mg Iron/Minerals/Multivitamins (Theragran M) 1 tab PO DAILY [facility] Last Admin: 02/16/18 09:56 Dose: 1 tab Magnesium Oxide (Magnesium Oxide) 400 mg PO DAILY [facility] Last Admin: 02/16/18 09:57 Dose: 400 mg Miscellaneous (Ase Protocol) 1 each FS ONE [facility] Stop: 02/17/18 20:19 Nifedipine (Procardia Xl) 30 mg PO DAILY [facility] Last Admin: 02/16/18 09:56 Dose: 30 mg Ondansetron HCl (Zofran Odt) 4 mg PO Q6H PRN PRN Reason: Nausea/Vomiting Ondansetron HCl (Zofran) 4 mg IVP Q6H PRN PRN Reason: Nausea/Vomiting Last Admin: 02/09/18 11:28 Dose: 4 mg Sodium Chloride (Flush - Normal Saline) 10 ml IVF Q12HR [facility] Last Admin: 02/16/18 09:57 Dose: 10 ml Sodium Chloride (Flush - Normal Saline) 10 ml IVF PRN PRN PRN Reason: Saline Flush Last Admin: 02/13/18 12:28 Dose: 10 ml Thiamine HCl (Thiamine) 100 mg PO DAILY [facility] Last Admin: 02/16/18 09:57 Dose: 100 mg Tramadol HCl (Ultram) 50 mg PO Q6H PRN PRN Reason: Pain Last Admin: 02/14/18 05:50 Dose: 50 mg
--- NOTE | 2018-02-14 23:01 | EKG ---
Test Reason : RHY CHGS Blood Pressure : / mmHG Vent. Rate : 063 BPM Atrial Rate : 063 BPM P-R Int : 138 ms QRS Dur : 084 ms QT Int : 444 ms P-R-T Axes : 179 060 056 degrees QTc Int : 454 ms Unusual P axis, possible ectopic atrial rhythm Abnormal ECG When compared with ECG of 07-FEB-2018 12:28, (Unconfirmed) Ectopic atrial rhythm has replaced Sinus rhythm Vent. rate has decreased BY 35 BPM QT has shortened Confirmed by Javier PRIETO ([id number]) on 02/14/2018 11:01:09 PM Referred By: JERARDO Confirmed By:Javier PRIETO
--- NOTE | 2018-02-14 23:02 | EKG ---
Test Reason : RHY CHGS Blood Pressure : / mmHG Vent. Rate : 081 BPM Atrial Rate : 081 BPM P-R Int : 086 ms QRS Dur : 086 ms QT Int : 586 ms P-R-T Axes : -37 044 062 degrees QTc Int : 680 ms Undetermined rhythm , PVC's Prolonged QT Abnormal ECG When compared with ECG of 10-FEB-2018 08:46, (Unconfirmed) Current undetermined rhythm precludes rhythm comparison, needs review QT has lengthened Confirmed by Javier PRIETO ([id number]) on 02/14/2018 11:02:03 PM Referred By: JERARDO Confirmed By:Javier PRIETO
--- NOTE | 2018-02-14 23:03 | EKG ---
Test Reason : RHY CHGS Blood Pressure : / mmHG Vent. Rate : 060 BPM Atrial Rate : 105 BPM P-R Int : 000 ms QRS Dur : 088 ms QT Int : 460 ms P-R-T Axes : 036 057 053 degrees QTc Int : 460 ms Sinus. Short IN. Otherwise normal ECG When compared with ECG of 10-FEB-2018 08:46, (Unconfirmed) Current undetermined rhythm precludes rhythm comparison, needs review QT has shortened Confirmed by Javier PRIETO ([id number]) on 02/14/2018 11:02:51 PM Referred By: JERARDO Confirmed By:Javier PRIETO
[2018-02-15 05:27] LABS: Anion Gap 14 mmol/L (10-20); BUN (Urea Nitrogen) 12 mg/dL (8.4-25.7); Calc. Creatinine Clearance 111 mL/min (70-130); Calcium 8.7 mg/dL (7.8-10.44); Carbon Dioxide 18 mmol/L (22-29); Chloride 104 mmol/L (98-107); Estimated GFR-MDRD Greater than 90; Glucose 84 mg/dL (70-105); Magnesium 1.6 mg/dL (1.6-2.6); Potassium 3.8 mmol/L (3.5-5.1); Sodium 132 mmol/L (136-145)
--- NOTE | 2018-02-15 08:26 | DIS ---
TRANSFER OF CARE NOTE DATE OF ADMISSION: 02/07/2018 DATE OF DISCHARGE: 02/15/2018 PRIMARY CARE PROVIDER: Listed alternatively as Boone Feliz or Dr. August Sun. The patient dionte leo I talked to him was unable to tell me who his doctor was, but they were located in [facility]. FINAL DIAGNOSES: 1. Acute renal failure, resolved. 2. Hypokalemia, resolved. 3. Rhabdomyolysis, resolved. 4. Abnormal liver function studies, resolved. 5. Cardiac arrhythmias, resolved. 6. Hypertension. 7. Alcohol abuse. DISCHARGE MEDICATIONS: Nifedipine 30 mg p.o. daily, folic acid 1 mg daily, thiamine 100 mg p.o. ata y. MEDICATIONS STOPPED: Lisinopril. ALLERGIES: PENICILLINS. CODE STATUS: FULL. PENDING AT THE TIME OF DISCHARGE: Nothing. HOSPITAL COURSE: The patient admitted to the [facility] through [facility]. The patient was found down by his sister on the floor after several hours. He had been drinking heavily. He had had some vomiting and loose stools. He had an acute renal failure with a c reatinine of 8.48, BUN 126, potassium 2.2, some abnormal liver functions studies. He was placed in [facility], put on IV fluids. Serial laboratory ordered. Vitamins started, benzodiazepine started for potential withdrawal. During his hospital stay, he was seen by Dr. Anibal Rosales, Nephrology; Dr Darci León, Pulmonology, Dr. Bruce Burton, Cardiology. The patient's renal function and liver function studies rapidly came down to normal. The patient had an episode of nonsustained ventricular tachycardia, probably electrolyte related, seen by Cardiology , required no intervention. The patient is alert, oriented, cooperative. His IRENE inhibitor was stop ped because of his severe renal dysfunction. In place of the IRENE inhibitor for hypertension he was s tarted on nifedipine. He is currently doing well. His creatinine 0.76, BUN is 12. His sodium is st ill running modestly low 132 to 135. Liver function tests have dropped so that the AST is 38, ALT is 58. CK is 115. His cardiorespiratory exam is normal. His vital signs are normal. He has been ask ed to see his primary care provider in 1 week for followup.
[2018-02-15] MEDS: Folic Acid 1 MG TAB PO SCH (10:02)
[2018-02-15] MEDS: NIFEdipine XL 30 MG TAB PO SCH (10:02)
[2018-02-15] MEDS: Famotidine 20 MG TAB PO SCH ×2 (10:03→20:15)
[2018-02-15] MEDS: Magnesium Oxide 400 MG TAB PO SCH (10:03)
[2018-02-15] MEDS: Multivitamin W/ Minerals 1 TAB PO SCH (10:03)
--- NOTE | 2018-02-15 18:35 | PDOC.PN ---
- Subjective Encounter Start Date: 02/15/18 Encounter Start Time: 18:33 Subjective: much improved - Objective Resuscitation Status: Resuscitation Status FULL:Full Resuscitation MAR Reviewed: Yes Vital Signs & Weight: Vital Signs (12 hours) Temp Pulse Resp BP Pulse Ox 02/15/18 09:30 98.1 F 115 H 16 96 02/15/18 08:02 98.1 F 115 H 16 134/97 H 96 Weight Admit Weight 172 lb 7 oz Weight 162 lb I&O: 02/14/18 02/15/18 02/16/18 06:59 06:59 06:59 Intake Total 1479 285 Output Total 1125 1100 Balance 354 -815 Result Diagrams: 02/14/18 04:12 02/15/18 04:16 Phys Exam - Physical Examination Neck: no JVD Respiratory: clear to auscultation bilateral Cardiovascular: RRR, no significant murmur Gastrointestinal: soft, positive bowel sounds Musculoskeletal: no edema Dx/Plan (1) Abnormal LFTs Code(s): R94.5 - ABNORMAL RESULTS OF LIVER FUNCTION STUDIES Status: Acute Comment: Improving (2) Arrhythmia Code(s): I49.9 - CARDIAC ARRHYTHMIA, UNSPECIFIED Status: Acute Comment: Improved, monitor potassium and magnesium levels (3) Hypokalemia Code(s): E87.6 - HYPOKALEMIA Status: Acute Comment: replace potassium (4) Rhabdomyolysis Code(s): M62.82 - RHABDOMYOLYSIS Status: Acute Comment: CK improving (5) Alcohol abuse Code(s): F10.10 - ALCOHOL ABUSE, UNCOMPLICATED Status: Chronic Comment: on ASE protocol (6) Dyslipidemia Code(s): E78.5 - HYPERLIPIDEMIA, UNSPECIFIED Status: Chronic (7) HTN (hypertension) Code(s): I10 - ESSENTIAL (PRIMARY) HYPERTENSION Status: Chronic Comment: Improving (8) Hypoalbuminemia Code(s): E88.09 - OTH DISORDERS OF PLASMA-PROTEIN METABOLISM, NEC Status: Chronic Comment: likely due to liver disease (9) Sepsis Code(s): A41.9 - SEPSIS, UNSPECIFIED ORGANISM Status: Suspected Comment: continues to have low-grade fevers, all cultures negative so far. Antibiotics have been discontinued (10) IRA (acute kidney injury) Code(s): N17.9 - ACUTE KIDNEY FAILURE, UNSPECIFIED Status: Resolved - Plan cont current plan of care cont current tx, workingon placement * .
--- NOTE | 2018-02-16 09:54 | PDOC.PN ---
- Subjective Encounter Start Date: 02/16/18 Encounter Start Time: 09:53 Subjective: doing well, no CO - Objective Resuscitation Status: Resuscitation Status FULL:Full Resuscitation MAR Reviewed: Yes Vital Signs & Weight: Vital Signs (12 hours) Temp Pulse Resp BP BP BP Pulse Ox 02/16/18 08:00 99.1 F 97 16 117/83 95 02/16/18 04:00 98.9 F 115 H 18 125/91 H 125/91 H Weight Admit Weight 172 lb 7 oz Weight 158 lb I&O: 02/15/18 02/16/18 02/17/18 06:59 06:59 06:59 Intake Total 285 435 Output Total 1100 1175 Balance -815 -740 Result Diagrams: 02/14/18 04:12 02/15/18 04:16 Phys Exam - Physical Examination Neck: no JVD Respiratory: clear to auscultation bilateral Cardiovascular: RRR, no significant murmur Gastrointestinal: soft, positive bowel sounds Musculoskeletal: no edema Dx/Plan (1) Abnormal LFTs Code(s): R94.5 - ABNORMAL RESULTS OF LIVER FUNCTION STUDIES Status: Acute Comment: Improving (2) Arrhythmia Code(s): I49.9 - CARDIAC ARRHYTHMIA, UNSPECIFIED Status: Acute Comment: Improved, monitor potassium and magnesium levels (3) Hypokalemia Code(s): E87.6 - HYPOKALEMIA Status: Acute Comment: replace potassium (4) Rhabdomyolysis Code(s): M62.82 - RHABDOMYOLYSIS Status: Acute Comment: CK improving (5) Alcohol abuse Code(s): F10.10 - ALCOHOL ABUSE, UNCOMPLICATED Status: Chronic Comment: on ASE protocol (6) Dyslipidemia Code(s): E78.5 - HYPERLIPIDEMIA, UNSPECIFIED Status: Chronic (7) HTN (hypertension) Code(s): I10 - ESSENTIAL (PRIMARY) HYPERTENSION Status: Chronic Comment: Improving (8) Hypoalbuminemia Code(s): E88.09 - OTH DISORDERS OF PLASMA-PROTEIN METABOLISM, NEC Status: Chronic Comment: likely due to liver disease (9) Sepsis Code(s): A41.9 - SEPSIS, UNSPECIFIED ORGANISM Status: Suspected Comment: continues to have low-grade fevers, all cultures negative so far. Antibiotics have been discontinued (10) IRA (acute kidney injury) Code(s): N17.9 - ACUTE KIDNEY FAILURE, UNSPECIFIED Status: Resolved - Plan doing well, placement in progress -: cont nifedipine, thiamine * .
[2018-02-16] MEDS: NIFEdipine XL 30 MG TAB PO SCH (09:56)
[2018-02-16] MEDS: Multivitamin W/ Minerals 1 TAB PO SCH (09:56)
[2018-02-16] MEDS: Magnesium Oxide 400 MG TAB PO SCH (09:57)
[2018-02-16] MEDS: Folic Acid 1 MG TAB PO SCH (09:57)
[2018-02-16] MEDS: Famotidine 20 MG TAB PO SCH (09:57)
[2018-02-16] MEDS: traMADol HCl 50 MG TAB PO PRN (14:20)
[2018-02-16 14:49] VITALS: BP 104/68; TEMP 98.7
[2018-02-16 15:29] VITALS: BMI 20.8
== END 2018-02-16 15:58 | DRG 682 ==
LOC: ERS 11:56 → ERHOLD 16:19 → IMCU/EMU 19:20 → 2NO 02-08 16:36
PROVIDERS: ADMIT Internal Medicine; ATTEND Internal Medicine
DX: N17.0 Acute kidney failure with tubular necrosis (principal); G93.49 Other encephalopathy; M62.82 Rhabdomyolysis; I47.2 Ventricular tachycardia; E87.0 Hyperosmolality and hypernatremia; R94.5 Abnormal results of liver function studies; I49.9 Cardiac arrhythmia, unspecified; E78.5 Hyperlipidemia, unspecified; E88.09 Other disorders of plasma-protein metabolism, not elsewhere classified; E87.6 Hypokalemia; Z91.81 History of falling; K70.10 Alcoholic hepatitis without ascites; E86.0 Dehydration; E83.42 Hypomagnesemia; F10.20 Alcohol dependence, uncomplicated; R26.9 Unspecified abnormalities of gait and mobility; N18.9 Chronic kidney disease, unspecified
CPT/HCPCS: 36415; 36416; 51702; 71045; 72040; 72100; 74176; 76770; 80048; 80053; 80076; 80202; 80306; 80307; 81001; 81003; 81015; 82274; 82550; 82553; 83605; 83735; 84443; 84484; 85025; 87040; 87086; 93005; 93010; 93306; 96361; 96365; 96366; A4216; G8978-GP-CL; G8979-GP-CJ; G8987-GO-CK; G8988-GO-CI; J0131; J0360; J0692; J2405; J3370; J3475; J3480; J7050; J7070